=== PATIENT | male | born 1950 | race Caucasian/White ===

== ENCOUNTER 2019-11-25 06:03 | Inpatient (IN) | payer MEDICARE ==
[2019-11-25] VITALS (19 sets, daily range): BP systolic 118–169; BP diastolic 73–118
[2019-11-25] MEDS ORDERED: ASPIRIN 81 MG CHEW (CHILDREN'S ASA) ONE (06:12)
[2019-11-25] MEDS ORDERED: TICAGRELOR 90 MG TABLET (BRILINTA) PO ONE (06:12)
[2019-11-25] MEDS ORDERED: HEParin 1000 UNIT/ML (10ML VIAL) FOR BOLUS ONE ×2 (06:13→06:30)
[2019-11-25 06:28] LABS: BASOPHILS # (AUTO) 0.1 10^3/uL (0.0-0.1); BASOPHILS % (AUTO) 1 % (0-10); EOSINOPHILS # (AUTO) 0.5 10^3/uL (0.0-0.3); EOSINOPHILS % (AUTO) 6 % (0-10); HEMATOCRIT 45 % (40-54); HEMOGLOBIN 15.6 G/DL (13.3-17.7); LYMPHOCYTES # (AUTO) 2.6 X 10^3 (1.0-4.0); LYMPHOCYTES % (AUTO) 27 % (12-44); MEAN CORPUSCULAR HEMOGLOBIN 29 PG (25-34); MEAN CORPUSCULAR HGB CONC 35 G/DL (32-36); MEAN CORPUSCULAR VOLUME 83 FL (80-99); MEAN PLATELET VOLUME 10.8 FL (7.4-10.4); MONOCYTES # (AUTO) 0.9 X 10^3 (0.0-1.0); MONOCYTES % (AUTO) 9 % (0-12); NEUTROPHILS # (AUTO) 5.4 X 10^3 (1.8-7.8); NEUTROPHILS % (AUTO) 58 % (42-75); PLATELET COUNT 87 10^3/uL (130-400); RED CELL DISTRIBUTION WIDTH 13.3 % (10.0-14.5); WHITE BLOOD COUNT 9.4 10^3/uL (4.3-11.0)
[2019-11-25] MEDS ORDERED: LIDOCAINE 1% INJ 20 ML 20 ML VIAL ONE (06:30)
[2019-11-25] MEDS ORDERED: fentaNYL INJECTION 100 MCG/2 ML AMP ONE (06:30)
[2019-11-25] MEDS ORDERED: MIDAZOLAM 5 MG/5 ML (VERSED) VIAL ONE (06:30)
[2019-11-25] MEDS ORDERED: NS IV 1000 ML 1,000 ML ONE ×2 (06:30→08:43)
[2019-11-25] MEDS ORDERED: HEParin (CATH LAB) 2,000 ML IV ONE (06:31)
[2019-11-25] MEDS ORDERED: NITRO DRIP 25000 MCG/D5W 250 ML IV ONE (06:31)
--- NOTE | 2019-11-25 06:37 | Diagnostic Imaging Report ---
Indication: Chest pain Portable chest 6:36 AM Heart size and pulmonary vascularity are normal. Lungs are clear. There are no effusions or pneumothoraces. IMPRESSION: No acute abnormalities in the chest Dictated by: Dictated on workstation # [id number]
[2019-11-25] MEDS ORDERED: EPTIFIBATIDE BOLUS 20 ML IV ONE (07:43)
--- NOTE | 2019-11-25 08:55 | History & Physicial-Cardiolgy ---
HPI-Cardiology Cardiology Consultation: Date of Consultation 11/25/19 Date of Admission Attending Physician Kobe Leo MD Admitting Physician Consulting Physician Milla COX MD HPI: Time Seen by a Provider: 07:15 Chief Complaint: chest pain 69-year-old gentleman with a history of moderate chest pain since 2 a.m. in the morning. He presented to the ER just after 6 o'clock this morning. substernal. No radiation. Initial intensity was 1/10. exacerbating or relieving factors. improved with nitroglycerin. No shortness of breath. Patient denies active smoking. He has history of hypertension but denies diabetes. Allergic to lisinopril. Family history is negative. Review of Systems-Cardiology Review of Systems Constitutional: As described under HPI; No As described under HPI, No no symptoms reported, No chills, No fever, No lightheadedness Eyes: No As described under HPI, No no symptoms reported, No blindness, No blurred vision, No contact lenses, No drainage, No decreased acuity, No foreign body sensation, No pain, No vision change Ears/Nose/Throat: No As described under HPI, No no symptoms reported, No c hronic hearing loss, No ear discharge, No ear pain, No nasal drainage, No ulcerations Respiratory: No no symptoms reported; As described under HPI; No As described under HPI, No cough, No orthopnea, No shortness of breath, No SOB with excertion Cardiovascular: No no symptoms reported; As described under HPI; No As described under HPI; chest pain; No edema, No irregular heart rate, No lightheadedness, No palpitations Gastrointestinal: No no symptoms reported, No As described under HPI, No abdomen distended, No abdominal pain, No blood streaked bowels, No constipation, No diarrhea, No nausea, No vomiting, No stool coloration changes Genitourinary: No As described under HPI, No burning, No dysuria, No discharge, No frequency, No flank pain, No hematuria, No urgency Skin: No rash, No skin related problems, No ulcerations Psychiatric/Neurological: No anxiety, No depression, No seizure, No focal weakness, No syncope Hematologic: No bleeding abnormalities [id number] Hx Past Medical History PMH As described under Assessment. Allergies and Home Medications Patient Home Medication List Home Medication List Reviewed: Yes Physical Exam-Cardiology Physical Exam Vital Signs/I&O Capillary Refill : Constitutional: appears stated age, AAO x 3; No apparent distress; well- developed, well-nourished HEENT: PERRL; No discharge; hearing is well preserved, oral hygience is good; No ulceration, No xanthelasmas are seen Neck: No carotid bruit; carotid pulses are 2 + bilaterally Respiratory: chest is bilaterally symmetric, lungs clear to auscultation Cardiovascular: regular rate-rhythm, S1 and S2 Gastrointestinal: soft, audible bowel sounds; No spleenomegaly Rectal: deferred Extremities: normal range of motion, non-tender, normal inspection; No clubbing, No cyanosis; no lower extremity edema bilateral; No significant edema Neurologic/Psychiatric: no motor/sensory deficits, alert, normal mood/affect, oriented x 3, power is 5/5 both on sides Skin: No rash, No ulcerations Data Review Labs Laboratory Tests 11/25/19 06:10: White Blood Count 9.4, Red Blood Count 5.45, Hemoglobin 15.6, Hematocrit 45, Mean Corpuscular Volume 83, Mean Corpuscular Hemoglobin 29, Mean Corpuscular Hemoglobin Concent 35, Red Cell Distribution Width 13.3, Platelet Count 87L, Mean Platelet Volume 10.8H, Neutrophils (%) (Auto) 58, Lymphocytes (%) (Auto) 27 , Monocytes (%) (Auto) 9, Eosinophils (%) (Auto) 6, Basophils (%) (Auto) 1, Neutrophils # (Auto) 5.4, Lymphocytes # (Auto) 2.6, Monocytes # (Auto) 0.9, Eosinophils # (Auto) 0.5H, Basophils # (Auto) 0.1, Prothrombin Time 13.0, INR Comment 1.0, Activated Partial Thromboplast Time 30 ECG Impression ECG Initial ECG Rhythm: Normal Sinus Comment ST depression and T-wave inversions noted in leads V2 and V3. 0.[address] depression. No reciprocal changes. A/P-Cardiology Assessment/Admission Diagnosis high risk non-STEMI; refractory to medical therapy. Hypertension Admission Status: Inpatient Order (span 2 midnights) Reason for Inpatient Admission: high-risk non-STEMI Plan this patient is a high-risk non-STEMI with refractory to medical therapy. Milla COX MD Nov 25, 2019 08:55
--- NOTE | 2019-11-25 08:58 | Coronary Angiography & PCI ---
Coronary Angiography & PCI DATE OF PROCEDURE: 11/25/19 INDICATION: PREOPERATIVE DIAGNOSIS: POSTOPERATIVE DIAGNOSIS: HISTORY: Therefore, the patient was scheduled for coronary angiography. PROCEDURES PERFORMED: 1.Coronary angiography. 2.Left heart catheterization. 3.PCI to the COMPLICATIONS: None. SPECIMENS: None. ESTIMATED BLOOD LOSS: 10 mL ANESTHESIA: Conscious sedation ANTICOAGULATION: IV heparin CONTRAST: FLUOROSCOPY: FLOUROSCOPY DOSE: PROCEDURE DETAILS: The patient is a 69 male and was brought to the company laborer after informed consent was taken. All the risks and complications were explained in detail; this included the risk of bleeding, vascular damage, stroke, [place] and even . The patient was draped and prepped in the usual sterile fashion. Access was gained in the right radial artery with a 6 [place] sheath. Coronary angiography and left heart catheterization was performed with the [place] catheter. FINDINGS: 1.Left main: 2.LAD: 3.Left circumflex artery: 4.RCA: 5.Left heart catheterization: RECOMMENDATIONS: INTERVENTION DETAILS: CONCLUSIONS: 1. Octavio Sawyer MD, FACP, FACC, [facility] Interventional Cardiology Milla SAWYER MD Nov 25, 2019 08:58
[2019-11-25] MEDS ORDERED: PATIENT MAY USE OWN MEDS, ALL PO SCH (09:00)
[2019-11-25] MEDS ORDERED: diphenhydrAMINE 50 MG/ML INJ (BENADRYL) ONE (09:40)
[2019-11-25 10:20] LABS: CARBON DIOXIDE 24 MMOL/L (21-32); CHLORIDE 106 MMOL/L (98-107); POTASSIUM 3.1 MMOL/L (3.6-5.0); SODIUM 142 MMOL/L (135-145)
[2019-11-25 10:21] LABS: ALANINE AMINOTRANSFERASE 19 U/L (0-55); ALBUMIN 4.4 GM/DL (3.2-4.5); ALKALINE PHOSPHATASE 80 U/L (40-136); BILIRUBIN,TOTAL 0.6 MG/DL (0.1-1.0); BUN/CREATININE RATIO 17; CALCIUM 9.2 MG/DL (8.5-10.1); CREATININE SERUM 0.98 MG/DL (0.60-1.30); GFR ESTIMATED > 60; GLUCOSE 172 MG/DL (70-105); TOTAL PROTEIN 7.7 GM/DL (6.4-8.2)
[2019-11-25] MEDS ORDERED: AMIODARONE 200 MG (CORDARONE) TAB PO SCH (11:00)
[2019-11-25] MEDS ORDERED: dilTIAZem120 MG (CARDIZEM CD) CAP PO SCH (11:00)
[2019-11-25] MEDS: TICAGRELOR 90 MG TABLET (BRILINTA) PO SCH ×2 (11:03→20:41)
[2019-11-25] MEDS: ASPIRIN E.C. 81 MG (ECOTRIN) TAB PO SCH (11:03)
--- NOTE | 2019-11-25 11:03 | NUR ---
MEDICATIONS WERE GIVEN IN ER
[2019-11-25] MEDS: NS IV 1000 ML 1,000 ML IV SCH ×3 (11:04→20:42)
[2019-11-25] MEDS ORDERED: meTOprolol TARTRATE 25 MG (LOPRESSOR) TABLET ONE (11:05)
[2019-11-25] MEDS: meTOprolol TARTRATE 25 MG (LOPRESSOR) TABLET PO SCH ×2 (11:40→20:42)
[2019-11-25] MEDS ORDERED: DIPH25CA79 PO (12:36)
[2019-11-25] MEDS ORDERED: OMEP20CA18 PO (12:36)
[2019-11-25] MEDS ORDERED: AMLO10TA7 PO (12:36)
[2019-11-25] MEDS ORDERED: LOSA100T57 PO (12:36)
[2019-11-25] MEDS ORDERED: MULT-1136 PO (12:36)
[2019-11-25] MEDS ORDERED: ATEN25TA PO (12:36)
--- NOTE | 2019-11-25 12:37 | NUR ---
SPOKE WITH THE PT (HIS HAD A MED LIST THAT I PUT ON THE CHART) AND WENT THRU THE EXT MED HISTORY TO COMPLETE THE MED REC ALL MEDS SHOW ON THE EXT MED HISTORY. [facility]- PT SAYS HE IS NO USING SINCE THE SURGERY WAS CANCELLED OTC MEDS: JULIANNA GOLD[facility]
--- NOTE | 2019-11-25 14:35 | NUR ---
No buddhism preference but former Tenriism. Psych Arnp provided prayer and blessing.
[2019-11-26] VITALS (18 sets, daily range): BP systolic 118–147; BP diastolic 75–97
[2019-11-26 03:19] LABS: HEMOGLOBIN 11.7 G/DL (13.3-17.7); MEAN PLATELET VOLUME 10.6 FL (7.4-10.4); RED CELL DISTRIBUTION WIDTH 13.3 % (10.0-14.5); WHITE BLOOD COUNT 11.7 10^3/uL (4.3-11.0)
[2019-11-26 03:28] LABS: BUN/CREATININE RATIO 11; CALCIUM 7.9 MG/DL (8.5-10.1); CARBON DIOXIDE 24 MMOL/L (21-32); CHLORIDE 106 MMOL/L (98-107); CHOLESTEROL 138 MG/DL (< 200); CREATININE SERUM 0.75 MG/DL (0.60-1.30); GFR ESTIMATED > 60; GLUCOSE 114 MG/DL (70-105); HDL CHOLESTEROL 29 MG/DL (40-60); POTASSIUM 3.5 MMOL/L (3.6-5.0); SODIUM 138 MMOL/L (135-145); TRIGLYCERIDES 172 MG/DL (<150); VLDL CHOLESTEROL 34 MG/DL (5-40)
[2019-11-26] MEDS: TICAGRELOR 90 MG TABLET (BRILINTA) PO SCH ×2 (08:04→21:07)
[2019-11-26] MEDS: meTOprolol TARTRATE 25 MG (LOPRESSOR) TABLET PO SCH (08:04)
[2019-11-26] MEDS: ASPIRIN E.C. 81 MG (ECOTRIN) TAB PO SCH (08:04)
[2019-11-26] MEDS: NS IV 1000 ML 1,000 ML IV SCH (15:47)
[2019-11-26] MEDS ORDERED: meTOproloL SUCCINATE 50 MG (TOPROL XL) TAB PO SCH (17:00)
[2019-11-26] MEDS ORDERED: ACETAMINOPHEN 325 MG TABLET PO PRN (17:00)
[2019-11-26] MEDS ORDERED: KCL 20 MEQ TAB (K-DUR) PO NR (17:00)
--- NOTE | 2019-11-26 17:07 | Progress Note - Cardiology ---
Cardiology SOAP Progress Note Subjective: No cp or palp or syncope or shortness of breath No focal weakness Mild R groin discomfort when walking and mild to mod R groin bruising No leg discomfort or discoloration No n/v/d Objective: I&O/Vital Signs 11/26/19 11/26/19 11/26/19 11/26/19 06:00 07:00 07:00 07:00 Temp 37.2 Pulse 67 75 71 Resp 34 B/P (MAP) 134/83 (100) Pulse Ox 94 O2 Delivery Room Air Room Air 11/26/19 11/26/19 11/26/19 11/26/19 08:00 08:00 09:00 10:00 Pulse 80 77 65 Resp 25 13 35 B/P (MAP) 133/82 (99) 129/86 (100) 126/90 (102) Pulse Ox 95 99 95 96 O2 Delivery Room Air Room Air Room Air Room Air 11/26/19 11/26/19 11/26/19 11/26/19 11:00 12:00 12:00 12:00 Temp 37.0 Pulse 63 63 Resp 26 37 B/P (MAP) 139/81 (100) 143/95 (111) Pulse Ox 95 100 93 O2 Delivery Room Air Room Air Room Air 11/26/19 11/26/19 11/26/19 11/26/19 13:00 13:25 14:00 15:00 Pulse 75 80 71 76 Resp 19 46 23 B/P (MAP) 147/92 (110) 135/97 (110) 141/89 (106) Pulse Ox 94 95 94 O2 Delivery Room Air Room Air Room Air 11/26/19 11/26/19 11/26/19 16:00 16:00 16:57 Temp 37.2 Pulse 78 76 Resp 20 23 B/P (MAP) 140/90 (107) 141/89 (106) Pulse Ox 95 95 94 O2 Delivery Room Air Room Air Room Air 11/26/19 00:00 Intake Total 950 ml Output Total 2225 ml Balance -1275 ml Condition: DP/PT pulses palpable Device Insertion Site: without hematoma Bruising: mild bruising, moderated bruising Constitutional: appears stated age, AAO x 3; No apparent distress; well- developed, well-nourished Respiratory: chest is bilaterally symmetric, lungs clear to auscultation Cardiovascular: regular rate-rhythm, S1 and S2, systolic murmur (soft HELENE at card basee) Gastrointestional: soft; No guarding, No rebound; audible bowel sounds Extremities: No clubbing, No cyanosis, No significant edema Neurologic/Psychiatric: oriented x 3, other (moves all limbs equally) Skin: No rash, No ulcerations, No rash on exposed areas, No ulcerations on exposed areas Results/Procedures: Labs Laboratory Tests 11/26/19 02:50: White Blood Count 11.7H, Red Blood Count 4.05L, Hemoglobin 11.7#L, Hematocrit 34L, Mean Corpuscular Volume 84, Mean Corpuscular Hemoglobin 29, Mean Corpuscular Hemoglobin Concent 34, Red Cell Distribution Width 13.3, Platelet Count 96L, Mean Platelet Volume 10.6H, Sodium Level 138, Potassium Level 3.5L, Chloride Level 106, Carbon Dioxide Level 24, Anion Gap 8, Blood Urea Nitrogen 8, Creatinine 0.75, Estimat Glomerular Filtration Rate > 60, BUN/Creatinine Ratio 11, Glucose Level 114H, Calcium Level 7.9L, Troponin I 11.934*H, Triglycerides Level 172H, Cholesterol Level 138, LDL Cholesterol Direct 98, VLDL Cholesterol 34, HDL Cholesterol 29L Laboratory Tests 11/25/19 06:10 11/26/19 02:50 A/P: Assessment: NSTEMI on 11/25/19 Multivessel CAD. Card cath on 11/25/19: LMCA ok; RCA dominant with mild diffuse disease; LAD 95% mid, treated with DONTRELL; LCX 99% mid, treated with DONTRELL; OM1 80% prox, treated with DONTRELL Echo of 11/25/19: Mild conc LVH, LVEF 55-65%, grade 1 diastolic dysfunction, PASP 20 mm Hg to 25 mm Hg. Hypertension Plan: I reviewed his records, interviewed and examined him, discussed his case with Dr Sawyer, and answered Mr and Mrs Fischer's questions DAPT BB ARB Statin Replenish K Increase ambulation Repeat labs in YULIET Vasquez MD FACP [facility] CCDS Nov 26, 2019 17:07
[2019-11-27] VITALS: BP 131/80
[2019-11-27] MEDS: NS IV 1000 ML 1,000 ML IV SCH (01:48)
[2019-11-27 03:38] LABS: BASOPHILS % (AUTO) 1 % (0-10); EOSINOPHILS # (AUTO) 0.4 10^3/uL (0.0-0.3); EOSINOPHILS % (AUTO) 5 % (0-10); HEMATOCRIT 33 % (40-54); HEMOGLOBIN 11.3 G/DL (13.3-17.7); LYMPHOCYTES # (AUTO) 1.5 X 10^3 (1.0-4.0); LYMPHOCYTES % (AUTO) 18 % (12-44); MEAN CORPUSCULAR HEMOGLOBIN 29 PG (25-34); MEAN CORPUSCULAR HGB CONC 34 G/DL (32-36); MEAN CORPUSCULAR VOLUME 84 FL (80-99); MEAN PLATELET VOLUME 10.7 FL (7.4-10.4); MONOCYTES % (AUTO) 11 % (0-12); NEUTROPHILS # (AUTO) 5.8 X 10^3 (1.8-7.8); NEUTROPHILS % (AUTO) 66 % (42-75); PLATELET COUNT 94 10^3/uL (130-400); RED CELL DISTRIBUTION WIDTH 12.9 % (10.0-14.5); WHITE BLOOD COUNT 8.7 10^3/uL (4.3-11.0)
[2019-11-27 04:00] VITALS: BP 135/76
[2019-11-27 04:13] LABS: BUN/CREATININE RATIO 11; CALCIUM 8.3 MG/DL (8.5-10.1); CARBON DIOXIDE 23 MMOL/L (21-32); CHLORIDE 109 MMOL/L (98-107); CREATININE SERUM 0.74 MG/DL (0.60-1.30); GFR ESTIMATED > 60; GLUCOSE 100 MG/DL (70-105); MAGNESIUM 1.4 MG/DL (1.6-2.4); POTASSIUM 3.3 MMOL/L (3.6-5.0); SODIUM 140 MMOL/L (135-145)
[2019-11-27 08:00] VITALS: BP 155/82
[2019-11-27] MEDS: ASPIRIN E.C. 81 MG (ECOTRIN) TAB PO SCH (08:45)
[2019-11-27] MEDS: TICAGRELOR 90 MG TABLET (BRILINTA) PO SCH ×2 (08:45→21:01)
[2019-11-27] MEDS ORDERED: LOSARTAN 50 MG (COZAAR) TAB PO SCH (09:00)
[2019-11-27] MEDS ORDERED: meTOprolol SUCCINATE 100 MG (TOPROL XL) TAB PO SCH (09:00)
--- NOTE | 2019-11-27 10:05 | NUR ---
pt called out and stated that he was having tingling in his feet. Assessed Pt, pt vitals wnl. checked perfusion and sensation to feet. both good at this time. relayed to dr hastings
[2019-11-27] MEDS ORDERED: LOSARTAN 50 MG (COZAAR) TAB PO ONE (10:45)
[2019-11-27] MEDS ORDERED: KCL 20 MEQ TAB (K-DUR) PO ONE (10:45)
--- NOTE | 2019-11-27 11:40 | Progress Note - Cardiology ---
Cardiology SOAP Progress Note Subjective: States he feels unwell Has had bilateral leg tingling Has had nausea w/o vomiting or diarrhea Has had a feeling of dizziness and being hot No cp or palp or syncope or shortness of breath No focal weakness Objective: I&O/Vital Signs 11/27/19 11/27/19 11/27/19 11/27/19 00:00 01:00 04:00 07:00 Temp 37.4 37.1 Pulse 66 65 68 71 Resp 16 16 B/P (MAP) 131/80 (97) 135/76 (95) Pulse Ox 95 96 O2 Delivery Room Air Room Air 11/27/19 08:00 Temp 36.7 Pulse 67 Resp 18 B/P (MAP) 155/82 (106) Pulse Ox 94 O2 Delivery Room Air 11/27/19 00:00 Intake Total 1400 ml Output Total 1100 ml Balance 300 ml Condition: DP/PT pulses palpable Device Insertion Site: without hematoma Bruising: mild bruising, moderated bruising Constitutional: appears stated age, AAO x 3; No apparent distress; well- developed, well-nourished Respiratory: chest is bilaterally symmetric, lungs clear to auscultation Cardiovascular: regular rate-rhythm, S1 and S2, systolic murmur (soft HELENE at card basee) Gastrointestional: soft; No guarding, No rebound; audible bowel sounds Extremities: No clubbing, No cyanosis, No significant edema Neurologic/Psychiatric: oriented x 3, other (moves all limbs equally) Skin: No rash, No ulcerations, No rash on exposed areas, No ulcerations on exposed areas Results/Procedures: Labs Laboratory Tests 11/27/19 03:10: White Blood Count 8.7, Red Blood Count 3.96L, Hemoglobin 11.3L, Hematocrit 33L, Mean Corpuscular Volume 84, Mean Corpuscular Hemoglobin 29, Mean Corpuscular Hemoglobin Concent 34, Red Cell Distribution Width 12.9, Platelet Count 94L, Mean Platelet Volume 10.7H, Neutrophils (%) (Auto) 66, Lymphocytes (%) (Auto) 18, Monocytes (%) (Auto) 11, Eosinophils (%) (Auto) 5, Basophils (%) (Auto) 1, Neutrophils # (Auto) 5.8, Lymphocytes # (Auto) 1.5, Monocytes # (Auto) 1.0, Eosinophils # (Auto) 0.4H, Basophils # (Auto) 0.0, Sodium Level 140, Potassium Level 3.3L, Chloride Level 109H, Carbon Dioxide Level 23, Anion Gap 8, Blood Urea Nitrogen 8, Creatinine 0.74, Estimat Glomerular Filtration Rate > 60, BUN/Creatinine Ratio 11, Glucose Level 100, Calcium Level 8.3L, Magnesium Level 1.4L, Thyroid Stimulating Hormone (TSH) 2.10 Laboratory Tests 11/26/19 02:50 11/27/19 03:10 A/P: Assessment: Multiple nonspecific symptoms of unclear etiology (see above) NSTEMI on 11/25/19 Multivessel CAD. Card cath on 11/25/19: LMCA ok; RCA dominant with mild diffuse disease; LAD 95% mid, treated with DONTRELL; LCX 99% mid, treated with DONTRELL; OM1 80% prox, treated with DONTRELL Echo of 11/25/19: Mild conc LVH, LVEF 55-65%, grade 1 diastolic dysfunction, PASP 20 mm Hg to 25 mm Hg Hypertension Mild anemia, probably due to periop blood loss on 11/25/19 Mild thrombocytopenia that patient reports to be chronic, stable Plan: Medical/Hospitalist consult. I discussed his case with Dr Shrot and requested DAPT, BB, ARB, Statin Replenish K Increase ambulation Repeat labs in am Hold discharge today YULIET ULLOA MD FACP [facility] Nov 27, 2019 11:40
[2019-11-27 11:45] VITALS: BP 170/94
[2019-11-27] MEDS ORDERED: PANTOPRAZOLE 40 MG (PROTONIX) TAB PO ONE ×2 (13:35→13:45)
--- NOTE | 2019-11-27 13:56 | Consultation - Hospitalist ---
HPI History of Present Illness: HPI/Chief Complaint Alo Fischer is a 69 year old man who presented with chest pain and was admitted with NSTEMI. He underwent PCI with multiple stents placed. This morning he was set to discharge, but shortly after receiving his morning medications he developed a tingling sensation in his feet. He reports that he was pacing around the room. He then developed nausea. He reports feeling dizzy and hot. He denies any dyspnea. He denies fevers and chills. He denies cough. He denies chest pain. He denies vomiting. He denies abdominal pain. He denies diarrhea. He says "maybe it was a panic attack". His says that he never complains about anything so if he mentioned it, then it must be serious. He has taken Atenolol up until recently and tolerated it well. He has not taken Metoprolol before. He has taken Aspirin without issue. He has never taken Brilinta until now. He has been on Losartan as an outpatient without issue. Source: patient Exam Limitations: no limitations Date Seen 11/27/19 Attending Physician Kobe Leo MD PCP Referring Physician Date of Admission Nov 25, 2019 at 09:03 Home Medications & Allergies Home Medications Reviewed patient Home Medication Reconciliation performed by pharmacy medication reconciliations prosthetics technician and/or nursing. Patients Allergies have been reviewed. Allergies Allergies Coded Allergies lisinopril (Verified Allergy, Severe, 11/25/19) FACIAL SWELLING Past [id number]-Rlzlmg Hx Past Med/Social Hx: Reviewed Nursing Past Med/Soc Hx Immunizations Up To Date Date of Pneumonia Vaccine: Nov 11, 2014 Family History Hypertension 19 MOTHER G8 BROTHER Review of Systems Constitutional: dizziness, malaise EENTM: no symptoms reported Respiratory: no symptoms reported Cardiovascular: no symptoms reported Gastrointestinal: nausea Genitourinary: no symptoms reported Musculoskeletal: no symptoms reported Skin: no symptoms reported Psychiatric/Neurological: Anxiety, Tingling Physical Exam Physical Exam Vital Signs Vital Signs - First Documented 11/25/19 11/25/19 11/25/19 11/25/19 09:30 09:35 09:43 09:45 Pulse 74 Resp 12 B/P (MAP) 167/98 (121) Pulse Ox 99 O2 Delivery Nasal Cannula O2 Flow Rate 2.00 Capillary Refill : Less Than 3 Seconds Height, Weight, BMI Height: '" Weight: lbs. oz. kg; BMI Method: General Appearance: No Apparent Distress, WD/WN HEENT: PERRL/EOMI, Pharynx Normal Neck: Normal Inspection, Supple Respiratory: Lungs Clear, Normal Breath Sounds, No Respiratory Distress Cardiovascular: Regular Rate, Rhythm, No Edema, No Murmur Gastrointestinal: Normal Bowel Sounds, Non Tender, Soft Extremity: Normal Inspection, Non Tender, Pedal Edema Neurologic/Psychiatric: Alert, Oriented x3, No Motor/Sensory Deficits, Normal Mood/Affect Skin: Normal Color, Warm/Dry Results Results/Procedures Labs Laboratory Tests 11/26/19 02:50 11/27/19 03:10 Patient resulted labs reviewed. Imaging: Reviewed Imaging Report Assessment/Plan Assessment and Plan Assess & Plan/Chief Complaint NSTEMI -Cardiology primary -Continue ASA, Brilinta, Metoprolol, Losartan, Lipitor Possible panic attack Possible adverse medication effect -Split medications to assess for adverse effect -Take Brilinta tonight at 8 pm -Take Lipitor tonight at 9 pm -Take Metoprolol tomorrow morning at 7 am -Take ASA and Brilinta tomorrow morning at 9 am -Begin Xanax 0.25 mg three times daily as needed for panic attack Hypomagnesemia Hypokalemia -Continue to monitor and replace as needed GERD -Continue PPI Diagnosis/Problems Diagnosis/Problems (1) NSTEMI (non-ST elevation myocardial infarction) Status: Acute (2) S/P coronary artery stent placement Status: Acute (3) Medication adverse effect Status: Acute (4) Panic attack as reaction to stress Status: Acute ELIE BIRMINGHAM MD Nov 27, 2019 13:56
[2019-11-27] MEDS: MAGNESIUM 1 GM/100 ML IVPB 100 ML IV SCH ×3 (15:03→16:17)
[2019-11-27 16:00] VITALS: BP 153/85
[2019-11-27] MEDS ORDERED: ALPRAZolam 0.25 MG (XANAX) TAB PO PRN (17:00)
[2019-11-27 20:00] VITALS: BP 162/91
[2019-11-27] MEDS: PANTOPRAZOLE 40 MG (PROTONIX) TAB PO SCH (21:01)
[2019-11-28 00:26] VITALS: BP 136/83
[2019-11-28 03:50] LABS: BUN/CREATININE RATIO 12; CALCIUM 8.2 MG/DL (8.5-10.1); CARBON DIOXIDE 23 MMOL/L (21-32); CHLORIDE 108 MMOL/L (98-107); CREATININE SERUM 0.73 MG/DL (0.60-1.30); GFR ESTIMATED > 60; GLUCOSE 100 MG/DL (70-105); MAGNESIUM 1.8 MG/DL (1.6-2.4); POTASSIUM 3.6 MMOL/L (3.6-5.0); SODIUM 140 MMOL/L (135-145)
[2019-11-28 04:00] VITALS: BP 166/89
[2019-11-28] MEDS ORDERED: meTOprolol SUCCINATE 100 MG (TOPROL XL) TAB PO SCH (07:00)
[2019-11-28] MEDS: PANTOPRAZOLE 40 MG (PROTONIX) TAB PO SCH (08:07)
[2019-11-28] MEDS: ASPIRIN E.C. 81 MG (ECOTRIN) TAB PO SCH (08:07)
[2019-11-28] MEDS: TICAGRELOR 90 MG TABLET (BRILINTA) PO SCH (08:07)
[2019-11-28 08:08] VITALS: BP 152/83
[2019-11-28] MEDS ORDERED: LOSARTAN 100 MG (COZAAR) TABLET PO SCH (09:00)
--- NOTE | 2019-11-28 11:10 | NUR ---
THIS NURSE NOTIFIED DR ULLOA PT IS REFUSING TO TAKE METOPROLOL. DR ULLOA SAID PT CAN RESUME HOME ATENOLOL INSTEAD. THIS NURSE NOTIFIED DR ULLOA PT HAS NOT C/O ANY NAUSEA, SOA, OR TINGLING IN HIS LEGS WITH ANY OF THE OTHER MORNING MEDICATIONS. PT BP WAS 152/[address] ULLOA WILL COME SEE PT LATER TODAY. THIS NURSE UPDATED DR BIRMINGHAM AND PT ON DR ULLOA'S PLAN.
[2019-11-28 11:21] VITALS: BP 158/93
--- NOTE | 2019-11-28 12:02 | Progress Note - Hospitalist ---
Subjective HPI/CC On Admission Date Seen by Provider: Nov 28, 2019 Time Seen by Provider: 09:50 Alo Fischer is a 69 year old man who presented with chest pain and was admitted with NSTEMI. He underwent PCI with multiple stents placed. This morning he was set to discharge, but shortly after receiving his morning medications he developed a tingling sensation in his feet. He reports that he was pacing around the room. He then developed nausea. He reports feeling dizzy and hot. He denies any dyspnea. He denies fevers and chills. He denies cough. He denies chest pain. He denies vomiting. He denies abdominal pain. He denies diarrhea. He says "maybe it was a panic attack". His says that he never complains about anything so if he mentioned it, then it must be serious. He has taken Atenolol up until recently and tolerated it well. He has not taken Metoprolol before. He has taken Aspirin without issue. He has never taken Brilinta until now. He has been on Losartan as an outpatient without issue. Subjective/Events-last exam he has had no further episodes like yesterday. He did not take his metoprolol this morning. He did not have any issues with his meds last night or this morning. He denies any fevers or chills. He denies any chest pain or shortness of breath. He denies any abdominal pain. He denies any nausea and vomiting. He denies any numbness and tingling. Objective Exam Vital Signs Vital Signs Date Time Temp Pulse Resp B/P (MAP) Pulse Ox O2 Delivery O2 Flow Rate FiO2 11/28/19 11:21 36.6 60 18 158/93 (114) 95 Room Air 11/25/19 13:39 2.00 Capillary Refill : Less Than 3 Seconds General Appearance: No Apparent Distress, WD/WN Respiratory: Lungs Clear, Normal Breath Sounds, No Respiratory Distress Cardiovascular: Regular Rate, Rhythm, No Edema, No Murmur Gastrointestinal: Normal Bowel Sounds, Non Tender, Soft Extremity: Normal Inspection, Non Tender, No Pedal Edema Neurologic/Psychiatric: Alert, Oriented x3, No Motor/Sensory Deficits, Normal Mood/Affect Skin: Normal Color, Warm/Dry Results/Procedures Lab Laboratory Tests 11/28/19 03:24 Patient resulted labs reviewed. Imaging: Reviewed Imaging Report Assessment/Plan Assessment and Plan Assess & Plan/Chief Complaint NSTEMI CAD Possible panic attack Possible adverse medication effect -Cardiology primary -Continue ASA, Brilinta, Losartan, Lipitor -discontinue metoprolol, resume atenolol GERD -Continue PPI Hypomagnesemia, resolved Hypokalemia, resolved Diagnosis/Problems Diagnosis/Problems (1) NSTEMI (non-ST elevation myocardial infarction) Status: Acute (2) S/P coronary artery stent placement Status: Acute (3) Medication adverse effect Status: Acute (4) Panic attack as reaction to stress Status: Acute ELIE BIRMINGHAM MD Nov 28, 2019 12:02
[2019-11-28] MEDS ORDERED: TICA90TA PO (12:55)
[2019-11-28] MEDS ORDERED: ASPI-999 PO (12:55)
[2019-11-28] MEDS ORDERED: ATOR40TA PO (12:55)
--- NOTE | 2019-11-28 12:55 | Discharge Inst-Cardiology ---
Discharge Inst-Cardiac Discharge Medications New Medications: Aspirin (Aspirin) 81 Mg Tab.chew 81 MG PO DAILY, #30 TAB 5 Refills Atorvastatin Calcium (Lipitor) 40 Mg Tablet 40 MG PO HS for 30 Days, #30 TAB 5 Refills Ticagrelor (Brilinta) 90 Mg Tablet 90 MG PO BID for 30 Days, #60 TAB 5 Refills Continued Medications: Amlodipine Besylate (Amlodipine Besylate) 10 Mg Tablet 10 MG PO DAILY, TAB Atenolol (Atenolol) 25 Mg Tablet 25 MG PO DAILY, TAB Diphenhydramine HCl (Benadryl) 25 Mg Capsule 25-50 MG PO Q6H PRN for ALLERGY SYMPTOMS, CAP Losartan Potassium (Losartan Potassium) 100 Mg Tablet 100 MG PO DAILY, TAB Multivitamin (Multivitamin) 1 Each Tablet 1 EACH PO DAILY, TAB Omeprazole (Omeprazole) 20 Mg Capsule.dr 20 MG PO BID, YULIET LONG MD [facility] Nov 28, 2019 12:55
--- NOTE | 2019-11-28 12:56 | Discharge Inst-Post CATH ---
Discharge Inst-CATH/EP Post Cardiac Cath/EP D/C Inst Follow Up/Plan F/u with Dr Sawyer next week ACTIVITY * Go Home directly and rest. * Limit activity of the leg (or wrist if it was used) for 7 days including aerobics, swimming, jogging, bicycling, etc. * Restrict stair-climbing for 7 days if possible, if not, climb up with your no n-cath leg, then bring together on the same step. * Avoid lifting, pushing, pulling or excessive movement of the affected ext remity for 7 days. * Customary sexual activity may be resumed after 2 days-use caution not to use a position that strains or causes pain to the affected extremity. * No driving for 24 hours. * NO SMOKING. * Avoid straining for bowel movements for 7 days. * Gentle walking on level ground is allowed. * Returning to work will depend on the type of procedure and the results. Your doctor will discuss this with you. CALL YOUR DOCTOR FOR ANY OF THE FOLLOWING: *If bleeding from the puncture site occurs- Apply gentle pressure to site with clean cloth and call your doctor or EMS. * If a knot or lump forms under the skin, increases in size, or causes pain. * If bruising appears to be worsening or moving further down your leg instead of disappearing. * Temperature above 101 F. CARE OF YOUR GROIN INCISION; * Bruising or purple discoloration of the skin near the puncture site is common. * You may shower only, no bathtub bathing for 5 days. Be careful to avoid slipping as your leg may feel stiff. * If a closure device was used on your femoral artery, please see the attached guide regarding care of the device and your leg. * Leave dressing on FOR 24 hours. CARE OF YOUR WRIST INCISION; * Bruising or purple discoloration of the skin near the puncture site is common. * You may shower. * DO NOT submerge wrist. * Leave dressing on FOR 24 hours. YULIET ULLOA MD FACP [facility] Nov 28, 2019 12:56
--- NOTE | 2019-11-28 13:03 | Progress Note - Cardiology ---
Cardiology SOAP Progress Note Subjective: Feels well today No tingling or weakness No cp or shortness of breath or palp or syncope No leg discomfort No n/v/d Wishes to go home Objective: I&O/Vital Signs 11/28/19 11/28/19 11/28/19 11/28/19 01:00 04:00 07:00 08:08 Temp 36.9 36.3 Pulse 57 61 62 64 Resp 18 18 B/P (MAP) 166/89 (114) 152/83 (106) Pulse Ox 96 95 O2 Delivery Room Air Room Air 11/28/19 11/28/19 09:00 11:21 Temp 36.6 Pulse 60 Resp 18 B/P (MAP) 158/93 (114) Pulse Ox 95 O2 Delivery Room Air Room Air 11/28/19 00:00 Intake Total 2160 ml Output Total 1700 ml Balance 460 ml Condition: DP/PT pulses palpable Device Insertion Site: without hematoma Bruising: moderated bruising Constitutional: appears stated age, AAO x 3; No apparent distress; well-developed, well-nourished Respiratory: chest is bilaterally symmetric, lungs clear to auscultation Cardiovascular: regular rate-rhythm, S1 and S2, systolic murmur (soft HELENE at card basee) Gastrointestional: soft; No guarding, No rebound; audible bowel sounds Extremities: No clubbing, No cyanosis, No significant edema Neurologic/Psychiatric: oriented x 3, other (moves all limbs equally) Skin: No rash, No ulcerations, No rash on exposed areas, No ulcerations on exposed areas Results/Procedures: Labs Laboratory Tests 11/28/19 03:24: Sodium Level 140, Potassium Level 3.6, Chloride Level 108H, Carbon Dioxide Level 23, Anion Gap 9, Blood Urea Nitrogen 9, Creatinine 0.73, Estimat Glomerular Filtration Rate > 60, BUN/Creatinine Ratio 12, Glucose Level 100, Calcium Level 8.2L, Magnesium Level 1.8 Laboratory Tests 11/27/19 03:10 11/28/19 03:24 A/P: Assessment: Multiple nonspecific symptoms of unclear etiology post-PCI, now resolved. May have been due to change in beta-leon NSTEMI on 11/25/19 Multivessel CAD. Card cath on 11/25/19: LMCA ok; RCA dominant with mild diffuse disease; LAD 95% mid, treated with DONTRELL; LCX 99% mid, treated with DONTRELL; OM1 80% prox, treated with DONTRELL Echo of 11/25/19: Mild conc LVH, LVEF 55-65%, grade 1 diastolic dysfunction, PASP 20 mm Hg to 25 mm Hg Hypertension Mild anemia, probably due to periop blood loss on 11/25/19 Mild thrombocytopenia that patient reports to be chronic, stable. This was evaluated by the Hospitalist Service during this hospitalization who did not gi ve any new recommendations Plan: Appreciate Dr Short's help whom we consulted for patient's thrombocytopenia and multiple, nonspecific symptoms after PCI DAPT, BB, ARB, Statin K corrected We had a detailed discussion with him regarding his CV findings, current regimen (including its pros and cons, and the importance of compliance) He did not tolerate metoprolol succinate well. He is back to his previous regimen for hypertension: atenolol, amlodipine, losartan His platelet count has been stable. We are continuing ASA and Brilinta and have advised outpt f/u with his pcp and with Dr Sawyer within a week Return to ER for any recurrence of symptoms or any new symptoms YULIET ULLOA MD FACP [facility] Nov 28, 2019 13:03
--- NOTE | 2019-11-28 13:05 | Cardiology Discharge Summary ---
Diagnosis/Chief Complaint Date of Admission Nov 25, 2019 at 09:03 Date of Discharge 11/28/19 Final/Discharge Diagnosis Multiple nonspecific symptoms of unclear etiology post-PCI, now resolved. May have been due to change in beta-leon NSTEMI on 11/25/19 Multivessel CAD. Card cath on 11/25/19: LMCA ok; RCA dominant with mild diffuse disease; LAD 95% mid, treated with DONTRELL; LCX 99% mid, treated with DONTRELL; OM1 80% p gogo, treated with DONTRELL Echo of 11/25/19: Mild conc LVH, LVEF 55-65%, grade 1 diastolic dysfunction, PASP 20 mm Hg to 25 mm Hg Hypertension Mild anemia, probably due to periop blood loss on 11/25/19 Mild thrombocytopenia that patient reports to be chronic, stable. This was evaluated by the Hospitalist Service during this hospitalization who did not give any new recommendations Chief Complaint/HPI Chief Complaint/HPI Please refer to our progress note of today's date for condition at discharge Appreciate Dr Short's help whom we consulted for patient's thrombocytopenia and multiple, nonspecific symptoms after PCI Continue DAPT, BB, ARB, statin K corrected We had a detailed discussion with him regarding his CV findings, current regimen (including its pros and cons, and the importance of compliance) He did not tolerate metoprolol succinate well. He is back to his previous regimen for hypertension: atenolol, amlodipine, losartan His platelet count has been stable. We are continuing ASA and Brilinta and have advised outpt f/u with his pcp and with Dr Sawyer within a week Return to ER for any recurrence of symptoms or any new symptoms Discharge Summary Discussion & Recommendations Home Medications Reviewed patient Home Medication Reconciliation performed by pharmacy medication reconciliations occupational health technician and/or nursing. Patients Allergies have been reviewed. Discharge Home Medications: Reviewed and agree with Discharge Medication list on patient's Discharge Instruction sheet Instructions to patient/family F/u with Dr Sawyer next week YULIET ULLOA MD [facility] Nov 28, 2019 13:05
[2019-11-28 14:00] VITALS: BP 158/93
--- NOTE | 2019-11-28 14:15 | NUR ---
THIS NURSE EDUCATED PT ON DISCHARGE INSTRUCTIONS AND HOME MEDICATIONS. PT STATED UNDERSTANDING. PT TAKEN DOWN VIA WHEELCHAIR WITH BELONGINGS. TO TAKE PT HOME.
[2019-11-29] MEDS ORDERED: ATENOLOL 25 MG (TENORMIN) TAB PO SCH (09:00)
== END 2019-11-28 14:35 | disposition home or self-care (01) | DRG 247 ==
LOC: ER 06:08 → CATH 06:39 → ICU 09:03 → CSD 11-26 16:56
PROVIDERS: ADMIT Internal Medicine Interventional Cardiology; ATTEND Emergency Medicine
PROC: 027236Z Dilation of Coronary Artery, Three Arteries with Three Drug-eluting Intraluminal Devices, Percutaneous Approach (ICD-10-PCS; principal; 2019-11-25)
PROC: 4A023N7 Measurement of Cardiac Sampling and Pressure, Left Heart, Percutaneous Approach (ICD-10-PCS; 2019-11-25)
PROC: B2111ZZ Fluoroscopy of Multiple Coronary Arteries using Low Osmolar Contrast (ICD-10-PCS; 2019-11-25)
PROC: B2151ZZ Fluoroscopy of Left Heart using Low Osmolar Contrast (ICD-10-PCS; 2019-11-25)
DX: I21.4 Non-ST elevation (NSTEMI) myocardial infarction (principal); D62 Acute posthemorrhagic anemia; I25.119 Atherosclerotic heart disease of native coronary artery with unspecified angina pectoris; I10 Essential (primary) hypertension; D69.6 Thrombocytopenia, unspecified; F41.0 Panic disorder [episodic paroxysmal anxiety]; E83.42 Hypomagnesemia; E87.6 Hypokalemia; K21.9 Gastro-esophageal reflux disease without esophagitis
CPT/HCPCS: 36415; 71045; 80048; 80053; 80061; 83735; 84443; 84484; 85025; 85027; 85610; 85730; 93005; 93306; 93458; 96374

== ENCOUNTER 2019-12-01 13:54 | Emergency (ER) | payer MEDICARE ==
[~2019-12-01] VITALS: Ht 193 cm; Wt 113.0 kg
[~2019-12-01 13:54] MED LIST: AMLO10TA7 PO; ASPI-999 PO; ATEN25TA PO; ATOR40TA PO; DIPH25CA79 PO; LOSA100T57 PO; MULT-1136 PO; OMEP20CA18 PO; TICA90TA PO
[2019-12-01 14:16] LABS: BASOPHILS # (AUTO) 0.1 10^3/uL (0.0-0.1); BASOPHILS % (AUTO) 1 % (0-10); EOSINOPHILS # (AUTO) 0.4 10^3/uL (0.0-0.3); EOSINOPHILS % (AUTO) 4 % (0-10); HEMATOCRIT 37 % (40-54); HEMOGLOBIN 12.8 G/DL (13.3-17.7); LYMPHOCYTES # (AUTO) 1.3 X 10^3 (1.0-4.0); LYMPHOCYTES % (AUTO) 16 % (12-44); MEAN CORPUSCULAR HEMOGLOBIN 29 PG (25-34); MEAN CORPUSCULAR HGB CONC 35 G/DL (32-36); MEAN CORPUSCULAR VOLUME 83 FL (80-99); MEAN PLATELET VOLUME 10.1 FL (7.4-10.4); MONOCYTES # (AUTO) 0.6 X 10^3 (0.0-1.0); MONOCYTES % (AUTO) 7 % (0-12); NEUTROPHILS # (AUTO) 5.8 X 10^3 (1.8-7.8); NEUTROPHILS % (AUTO) 71 % (42-75); PLATELET COUNT 169 10^3/uL (130-400); RED CELL DISTRIBUTION WIDTH 13.2 % (10.0-14.5); WHITE BLOOD COUNT 8.1 10^3/uL (4.3-11.0)
--- NOTE | 2019-12-01 14:21 | ED Lower Extremity ---
General Chief Complaint: Lower Extremity Stated Complaint: INCISION ISSUES Source: patient Exam Limitations: no limitations History of Present Illness Date Seen by Provider: Dec 01, 2019 Time Seen by Provider: 14:00 Initial Comments Patient presents to ED with complaints or swelling, bruising, and pain to right groin at site where he had a heart cath last . Patient states he was discharged home on Friday and has been limiting his activity to walking since he arrived home. Onset: last week Severity: mild Pain/Injury Location: right leg Allergies and Home Medications Allergies Coded Allergies: lisinopril (Verified Allergy, Severe, 11/25/19) FACIAL SWELLING Home Medications Amlodipine Besylate 10 Mg Tablet, 10 MG PO DAILY, (Reported) Aspirin 81 Mg Tab.chew, 81 MG PO DAILY Prescribed by: YULIET ULLOA on 11/28/19 1255 Atenolol 25 Mg Tablet, 25 MG PO DAILY, (Reported) Atorvastatin Calcium 40 Mg Tablet, 40 MG PO HS Prescribed by: YULIET ULLOA on 11/28/19 1255 Diphenhydramine HCl 25 Mg Capsule, 25-50 MG PO Q6H PRN for ALLERGY SYMPTOMS, (Reported) Losartan Potassium 100 Mg Tablet, 100 MG PO DAILY, (Reported) Multivitamin 1 Each Tablet, 1 EACH PO DAILY, (Reported) Omeprazole 20 Mg Capsule.dr, 20 MG PO BID, (Reported) Ticagrelor 90 Mg Tablet, 90 MG PO BID Prescribed by: YULIET ULLOA on 11/28/19 1255 Patient Home Medication List Home Medication List Reviewed: Yes Review of Systems Constitutional: no symptoms reported; No dizziness, No weakness EENTM: see HPI, no symptoms reported; No hearing loss, No ear pain Respiratory: no symptoms reported, see HPI; No cough, No dyspnea on exertion Cardiovascular: no symptoms reported, see HPI; No chest pain; edema, Hx of Intervention Gastrointestinal: no symptoms reported, see HPI Genitourinary: no symptoms reported, see HPI Musculoskeletal: no symptoms reported, see HPI Skin: see HPI, change in color, lumps (Hardened area to right groin), other (Bruising and edema from rt groin to rt knee) Psychiatric/Neurological: No Symptoms Reported; Denies Anxiety, Denies Headache, Denies Paresthesia Past Dahcvoe-Eziusa-Aeabzr Hx Patient Social History Recent Foreign Travel: No Contact w/Someone Who Travel: No Immunizations Up To Date Date of Pneumonia Vaccine: Nov 11, 2014 Family Medical History Hypertension 19 MOTHER G8 BROTHER Physical Exam Vital Signs Vital Signs - First Documented 12/01/19 14:00 Temp 36.4 Pulse 81 Resp 18 B/P (MAP) 167/86 (113) Pulse Ox 98 Capillary Refill : Height, Weight, BMI Height: '" Weight: lbs. oz. kg; BMI Method: General Appearance: WD/WN, no apparent distress Neck: full range of motion, normal inspection Cardiovascular: normal peripheral pulses, regular rate, rhythm Respiratory: lungs clear, normal breath sounds, no respiratory distress, no accessory muscle use Gastrointestinal: normal bowel sounds, non tender, soft Back: normal inspection, no vertebral tenderness Legs: left leg non-tender, left leg normal inspection; bilateral leg normal range of motion; right leg ecchymosis, right leg pain, right leg soft tissue tenderness, right leg swelling Knees: bilateral knee non-tender, bilateral knee normal inspection, bilateral knee normal range of motion, bilateral knee no evidence of injury Ankles: bilateral ankle non-tender, bilateral ankle normal inspection, bilateral ankle normal range of motion, bilateral ankle no evidence of injury Feet: bilateral foot non-tender, bilateral foot normal inspection, bilateral foot normal range of motion, bilateral foot no evidence of injury Neurologic/Tendon: normal sensation, normal motor functions Neurologic/Psychiatric: alert, normal mood/affect, oriented x 3 Skin: cool, ecchymosis Lymphatic: no adenopathy Progress/Results/Core Measures Results/Orders Lab Results Laboratory Tests Test 12/01/19 14:00 Range/Units White Blood Count 8.1 4.3-11.0 10^3/uL Red Blood Count 4.45 4.35-5.85 10^6/uL Hemoglobin 12.8 L 13.3-17.7 G/DL Hematocrit 37 L 40-54 % Mean Corpuscular Volume 83 80-99 FL Mean Corpuscular Hemoglobin 29 25-34 PG Mean Corpuscular Hemoglobin Concent 35 32-36 G/DL Red Cell Distribution Width 13.2 10.0-14.5 % Platelet Count 169 130-400 10^3/uL Mean Platelet Volume 10.1 7.4-10.4 FL Neutrophils (%) (Auto) 71 42-75 % Lymphocytes (%) (Auto) 16 12-44 % Monocytes (%) (Auto) 7 0-12 % Eosinophils (%) (Auto) 4 0-10 % Basophils (%) (Auto) 1 0-10 % Neutrophils # (Auto) 5.8 1.8-7.8 X 10^3 Lymphocytes # (Auto) 1.3 1.0-4.0 X 10^3 Monocytes # (Auto) 0.6 0.0-1.0 X 10^3 Eosinophils # (Auto) 0.4 H 0.0-0.3 10^3/uL Basophils # (Auto) 0.1 0.0-0.1 10^3/uL My Orders Orders - AGUSTINA CABALLERO APRN Cbc With Automated Diff (12/01/19 14:07) Us Right Low Ext [id number] (12/01/19 14:07) Vital Signs/I&O 12/01/19 14:00 Temp 36.4 Pulse 81 Resp 18 B/P (MAP) 167/86 (113) Pulse Ox 98 Progress Progress Note : Progress Note US tech reports no pseudo aneurysm or other complications seen. Departure Impression Primary Impression: Post-operative complication Disposition: 01 HOME, SELF-CARE Condition: Stable Departure-Patient Inst. Decision time for Depature: 15:41 Referrals: Milla SAWYER MD Patient Instructions: HEMATOMA Add. Discharge Instructions: Please keep follow-up appointment with with Dr. Sawyer. Continue current restrictions of no bending, lifting, etc until released by Dr. Sawyer All discharge instructions reviewed with patient and/or family. Voiced understanding. Copy Copies To 1: Milla SAWYER MD, PETER J APRN Dec 01, 2019 14:21
[2019-12-01 15:49] VITALS: BP 167/86
--- NOTE | 2019-12-02 09:05 | Diagnostic Imaging Report ---
INDICATION: Status post heart catheterization with bruising and swelling to the right groin. Grayscale, color-flow, and duplex Doppler evaluation of the right groin including the right common femoral artery, right common femoral vein and proximal superficial femoral artery was performed. There is normal triphasic waveforms within the right common femoral artery. Normal venous waveforms within the common femoral vein is identified. There is no evidence of an AV fistula. There are collateral vessels identified in the right groin, however, there is no evidence of a pseudoaneurysm. No hematoma is identified. IMPRESSION: No evidence of pseudoaneurysm or AV fistula. Dictated by: Dictated on workstation # [id number]
== END 2019-12-01 15:50 | disposition home or self-care (01) ==
LOC: EDUNIT# 13:54 → ER 13:57
DX: L76.32 Postprocedural hematoma of skin and subcutaneous tissue following other procedure (principal); Z88.8 Allergy status to other drugs, medicaments and biological substances; Z82.49 Family history of ischemic heart disease and other diseases of the circulatory system; Z79.82 Long term (current) use of aspirin
CPT/HCPCS: 36415; 85025; 93926

== ENCOUNTER 2021-05-11 19:32 | Emergency (ER) | payer MEDICARE ==
[~2021-05-11] VITALS: Ht 193 cm; Wt 113.6 kg
[~2021-05-11 19:32] MED LIST changes: +AMLO-251 PO; -AMLO10TA7 PO
--- NOTE | 2021-05-11 20:09 | ED Cough/URI ---
General Chief Complaint: Cough/Cold/Flu Symptoms Stated Complaint: FEVER,FATIGUE,HEADACHE, Nursing Triage Note: pt arrives ambulatory w/ c/o fever, fatigue, body aches and headache. Ambulatory to room attached to NIBP and SpO2 monitors. Source: patient Exam Limitations: no limitations History of Present Illness Date Seen by Provider: May 11, 2021 Time Seen by Provider: 19:58 Initial Comments Patient is a 71-year-old male with a history of coronary artery disease who presents to the emergency department today with a chief complaint of mild headache, significant fatigue, fever to 103 at home today, a little bit of diarrhea. Symptom onset primarily with fatigue on Friday, May 09. They had just come back from [facility] the day before. Patient is Covid vaccinated had his booster as well as flu shot in February of last year. Denies any cough or shortness of breath. Notably his room air sat oxygen saturations are 91%. He denies chest pain. No abdominal pain or nausea. He has had significantly decreased appetite today has not really eaten anything at all. No urinary complaints. No black or bloody stools. Always has a little bit of lower extremity swelling but no pain in his calves. Took Tylenol twice today for his fever of 103 once at 1:00 once at 7 PM. Is not a diabetic. Is a former smoker, does not require the use of inhalers. All other review of systems negative except as stated. Timing/Duration: other (3 days) Severity/Quality: no cough Associated Symptoms: fever/chills, headache, other (diarrhea) Allergies and Home Medications Allergies Coded Allergies: lisinopril (Verified Allergy, Severe, 11/25/19) FACIAL SWELLING Patient Home Medication List Home Medication List Reviewed: Yes Amlodipine Besylate (Amlodipine Besylate) 10 Mg Tablet, 10 MG PO DAILY, (Reported) Entered as Reported by: WEI CASTLE on 11/25/19 1236 Aspirin (Aspirin) 81 Mg Tab.chew, 81 MG PO DAILY Prescribed by: YULIET ULLOA on 11/28/19 1255 Atenolol (Atenolol) 25 Mg Tablet, 25 MG PO DAILY, (Reported) Entered as Reported by: WEI CASTLE on 11/25/19 1236 Atorvastatin Calcium (Lipitor) 40 Mg Tablet, 40 MG PO HS Prescribed by: YULIET ULLOA on 11/28/19 1255 Diphenhydramine HCl (Benadryl) 25 Mg Capsule, 25-50 MG PO Q6H PRN for ALLERGY SYMPTOMS, (Reported) Entered as Reported by: WEI CASTLE on 11/25/19 1236 Losartan Potassium (Losartan Potassium) 100 Mg Tablet, 100 MG PO DAILY, (Reported) Entered as Reported by: WEI CASTLE on 11/25/19 1236 Multivitamin (Multivitamin) 1 Each Tablet, 1 EACH PO DAILY, (Reported) Entered as Reported by: WEI CASTLE on 11/25/19 1236 Omeprazole (Omeprazole) 20 Mg Capsule.dr, 20 MG PO BID, (Reported) Entered as Reported by: WEI CASTLE on 11/25/19 1236 Ondansetron (Ondansetron Odt) 4 Mg Tab.rapdis, 4 MG PO Q8H PRN for nausea Prescribed by: TOMY FRANK on 05/11/21 2220 Ticagrelor (Brilinta) 90 Mg Tablet, 90 MG PO BID Prescribed by: YULIET ULLOA on 11/28/19 1255 Review of Systems Review of Systems Constitutional: see HPI, malaise EENTM: no symptoms reported Respiratory: no symptoms reported Cardiovascular: no symptoms reported Gastrointestinal: diarrhea Genitourinary: no symptoms reported Musculoskeletal: no symptoms reported Skin: no symptoms reported Psychiatric/Neurological: Headache, Weakness All Other Systems Reviewed Negative Unless Noted: Yes Past Uyibfxy-Fhtyhw-Vcoqrt Hx Past Medical History Surgeries: Yes Coronary Stent Respiratory: No Cardiac: Yes Heart Attack Neurological: No Genitourinary: No Gastrointestinal: No Musculoskeletal: No Endocrine: No HEENT: No Cancer: No Psychosocial: No Integumentary: No Family Medical History Hypertension 19 MOTHER G8 BROTHER Physical Exam Vital Signs - First Documented 05/11/21 19:53 Temp 36.9 Pulse 86 Resp 20 B/P (MAP) 144/84 (104) Pulse Ox 93 O2 Delivery Room Air Capillary Refill : Less Than 3 Seconds Height: '" Weight: lbs. oz. kg; 30.00 BMI Method: General Appearance: WD/WN, no apparent distress Eyes: Bilateral Eye Normal Inspection, Bilateral Eye PERRL, Bilateral Eye EOMI HEENT: PERRL/EOMI, TMs normal, pharynx normal, other (slightly dry oral mucosa) Respiratory: lungs clear, normal breath sounds, no respiratory distress, no accessory muscle use, plerual rub (with deep breaths sats go up to 94-96%) Cardiovascular: regular rate, rhythm Gastrointestinal: normal bowel sounds, non tender, soft Extremities: non-tender, normal inspection, no pedal edema, no calf tenderness, normal capillary refill Neurologic/Psychiatric: alert, normal mood/affect, oriented x 3 Skin: normal color, diaphoresis Focused Exam Lactate Level 05/11/21 20:25: Lactic Acid Level 0.96 Lactic Acid Level Laboratory Tests Test 05/11/21 20:25 Lactic Acid Level 0.96 MMOL/L (0.50-2.00) Progress/Results/Core Measures Suspected Sepsis SIRS Temperature: Pulse: 86 Respiratory Rate: 20 Laboratory Tests 05/11/21 20:25: White Blood Count 15.9H Blood Pressure 144 /84 Mean: 104 05/11/21 20:25: Lactic Acid Level 0.96 Laboratory Tests 05/11/21 20:25: Creatinine 0.83, INR Comment 1.1, Platelet Count 79L, Total Bilirubin 2.0H Results/Orders Lab Results Laboratory Tests Test 05/11/21 20:25 05/11/21 20:38 05/11/21 21:07 Range/Units White Blood Count 15.9 H 4.3-11.0 10^3/uL Red Blood Count 4.62 4.30-5.52 10^6/uL Hemoglobin 13.4 13.3-17.7 g/dL Hematocrit 39 L 40-54 % Mean Corpuscular Volume 85 80-99 fL Mean Corpuscular Hemoglobin 29 25-34 pg Mean Corpuscular Hemoglobin Concent 34 32-36 g/dL Red Cell Distribution Width 12.6 10.0-14.5 % Platelet Count 79 L 130-400 10^3/uL Mean Platelet Volume 11.0 9.0-12.2 fL Immature Granulocyte % (Auto) 1 % Neutrophils (%) (Auto) 82 H 42-75 % Lymphocytes (%) (Auto) 7 L 12-44 % Monocytes (%) (Auto) 10 0-12 % Eosinophils (%) (Auto) 0 0-10 % Basophils (%) (Auto) 1 0-10 % Neutrophils # (Auto) 13.1 H 1.8-7.8 10^3/uL Lymphocytes # (Auto) 1.0 1.0-4.0 10^3/uL Monocytes # (Auto) 1.6 H 0.0-1.0 10^3/uL Eosinophils # (Auto) 0.0 0.0-0.3 10^3/uL Basophils # (Auto) 0.1 0.0-0.1 10^3/uL Immature Granulocyte # (Auto) 0.1 0.0-0.1 10^3/uL Neutrophils % (Manual) 85 % Lymphocytes % (Manual) 7 % Monocytes % (Manual) 8 % Blood Morphology Comment NORMAL Prothrombin Time 14.9 H 12.2-14.7 SEC INR Comment 1.1 0.8-1.4 Activated Partial Thromboplast Time 34 24-35 SEC Sodium Level 135 135-145 MMOL/L Potassium Level 2.8 L 3.6-5.0 MMOL/L Chloride Level 97 L 98-107 MMOL/L Carbon Dioxide Level 25 21-32 MMOL/L Anion Gap 13 5-14 MMOL/L Blood Urea Nitrogen 11 7-18 MG/DL Creatinine 0.83 0.60-1.30 MG/DL Estimat Glomerular Filtration Rate 94 BUN/Creatinine Ratio 13 Glucose Level 119 H 70-105 MG/DL Lactic Acid Level 0.96 0.50-2.00 MMOL/L Calcium Level 9.2 8.5-10.1 MG/DL Corrected Calcium 9.4 8.5-10.1 MG/DL Total Bilirubin 2.0 H 0.1-1.0 MG/DL Aspartate Amino Transf (AST/SGOT) 32 5-34 U/L Alanine Aminotransferase (ALT/SGPT) 31 0-55 U/L Alkaline Phosphatase 105 40-136 U/L Total Protein 6.9 6.4-8.2 GM/DL Albumin 3.7 3.2-4.5 GM/DL Influenza Type A Antigen NEGATIVE NEGATIVE Influenza Type B Antigen NEGATIVE NEGATIVE SARS-CoV-2 RNA (RT-PCR) Not Detected Negative Urine Color YELLOW Urine Clarity CLEAR Urine pH 7.0 5-9 Urine Specific [place] <=1.005 1.016-1.022 Urine Protein NEGATIVE NEGATIVE Urine Glucose (UA) NEGATIVE NEGATIVE Urine Ketones NEGATIVE NEGATIVE Urine Nitrite NEGATIVE NEGATIVE Urine Bilirubin NEGATIVE NEGATIVE Urine Urobilinogen 1.0 < = 1.0 MG/DL Urine Leukocyte Esterase NEGATIVE NEGATIVE Urine RBC (Auto) TRACE-I H NEGATIVE Urine RBC RARE /HPF Urine WBC RARE /HPF Urine Squamous Epithelial Cells RARE /HPF Urine Crystals NONE /LPF Urine Bacteria TRACE /HPF Urine Casts NONE /LPF Urine Mucus NEGATIVE /LPF Urine Culture Indicated NO My Orders Orders - TOMY FRANK MD Cbc With Automated Diff (05/11/21 20:04) Comprehensive Metabolic Panel (05/11/21 20:04) Blood Culture (05/11/21 20:04) Sputum Culture (05/11/21 20:04) Urinalysis (05/11/21 20:04) Urine Culture (05/11/21 20:04) Protime With Inr (05/11/21 20:04) Partial Thromboplastin Time (05/11/21 20:04) Chest 1 View, Ap/Pa Only (05/11/21 20:04) Ed Iv/Invasive Line Start (05/11/21 20:04) Ed Iv/Invasive Line Start (05/11/21 20:04) Vital Signs Adult Sepsis Patie Q15M (05/11/21 20:04) O2 (05/11/21 20:04) Remove Rings In Anticipation O (05/11/21 20:04) Lactic Acid Analyzer (05/11/21 20:04) Covid 19 Inhouse Test (05/11/21 20:04) Isolation Central Supply Req (05/11/21 20:04) Ns Iv 1000 Ml (Sodium Chloride 0.9%) (05/11/21 20:15) Influenza A & B Antigens (05/11/21 20:25) Manual Differential (05/11/21 20:25) Coronavirus Sars-Cov-2 So 2018 (05/11/21 20:25) Potassium Cl 10meq/50ml Ivpb (Kcl 10 Meq (05/11/21 21:15) Potassium Chloride (Tablet) (K Dur Table (05/11/21 21:15) Ns Iv 500 Ml (Sodium Chloride 0.9%) (05/11/21 21:47) Medications Given in ED Current Medications Medications Dose Ordered Sig/Sukhdev Route Start Time Stop Time Status Last Admin Dose Admin Potassium Chloride 40 meq ONCE ONCE PO 05/11/21 21:15 05/11/21 21:18 DC 05/11/21 21:37 40 MEQ Vital Signs/I&O 05/11/21 05/11/21 05/11/21 19:53 21:09 22:43 Temp 36.9 36.8 37.2 Pulse 86 75 Resp 20 22 B/P (MAP) 144/84 (104) 127/75 Pulse Ox 93 92 O2 Delivery Room Air Room Air Capillary Refill : Less Than 3 Seconds Blood Pressure Mean: 104 Progress Note : Time: 22:44 Progress Note Multiple reevaluations, Malina is resting comfortably, temp is rechecked, is 99.1. Oxygen saturations while at rest in the bed are 93% on room air. He was dropping as low as 90%. No increased work of breathing/respiratory distress. Chest x-ray shows bibasilar atelectasis. He does have an elevated white blood cell count of 15,000. I do suspect Covid however his Torrez rapid test was negative tonight. I have recommended that he and his quarantine until they get his send out results tomorrow. I am going to go ahead and prescribe Paxlovid for him. We did discuss the indications for this medication. would like to proceed. I am giving him a supplement of potassium for the next 5 days as well as some Zofran. Patient was ambulated in the hernandez, when he got up he was about 88-89% but once he started walking, he stayed between 90-93%. No complaints of SOB or lightheadedness or dizziness. He follows with Dr. Espinoza. I will send the chart to his office. Recommend a call on Friday morning for follow-up appointment next week. I encouraged fluids. I encouraged a pulse oximeter for home. Everything has been discussed with them they verbalized understanding with the plan of care and are comfortable with it. All questions are sought and answered Diagnostic Imaging Diagonstic Imaging: Xray Plain Films/CT/US/NM/MRI: chest Comments [facility], [place] NAME: MALINA DUARTE MED REC#: [id number] PT STATUS: REG ER : 1950 PHYSICIAN: TOMY FRANK MD ADMIT DATE: 05/11/21/ER Signed Date of Exam:05/11/21 CHEST 1 VIEW, AP/PA ONLY INDICATION: Fever, fatigue, body aches and headache. EXAMINATION: Chest, 05/11/2021. COMPARISON: 11/25/2019. FINDINGS: There is minimal bibasilar atelectasis. There is eventration of the right hemidiaphragm similar to previous imaging. Heart is prominent. Pulmonary vasculature normal. No infiltrates, effusions or pneumothorax. IMPRESSION: 1. Bibasilar atelectasis or scar. 2. Cardiomegaly. Dictated by: Dictated on workstation # [id number] Dict: 05/11/212124 Trans: 05/11/212155 PJE [id number] Interpreted by: FOREST SCHOFIELD MD Electronically signed by: FOREST SCHOFIELD MD 05/11/212155 Departure Impression Primary Impression: Viral syndrome Additional Impressions: Person under investigation for COVID-19 Hypokalemia Disposition: HOME, SELF-CARE Condition: Stable Departure-Patient Inst. Decision time for Depature: 22:16 Referrals: MELBA ESPINOZA DO Patient Instructions: COVID-19 (DC), Hypokalemia (DC) Add. Discharge Instructions: Drink lots of fluids to stay well hydrated. If your COVID test comes back POSITIVE, start the Paxlovid and take as directed. DO NOT TAKE your Statin medication while taking the Paxlovid. Once you are done with the Paxlovid, you may restart the statin drug, Zofran, 4mg, every 8 hours as needed for nausea. Take the potassium daily for the next 5 days. You will need your level rechecked in the next week. You should get your "send out" COVID test results tomorrow - the hospital will call. Please quarantine like you have COVID until you get these results. Continue to alternate tylenol and Ibuprofen for any fever over 100.4, body aches. Return to the Emergency Department for any new, concerning, emergent complaints. Scripts Nirmatrelvir/Ritonavir (Paxlovid Co-Pack (Eua)) 1 Each Tablet 1 EACH PO UD for 5 Days, #1 EACH Prov: TOMY FRANK MD 05/11/21 Potassium Chloride (K-Tab ER) 20 Meq Tablet.er 20 MEQ PO DAILY for 5 Days, #5 TAB Prov: TOMY FRANK MD 05/11/21 Ondansetron (Ondansetron Odt) 4 Mg Tab.rapdis 4 MG PO Q8H PRN for nausea, #20 TAB Prov: TOMY FRANK MD 05/11/21 Copy Copies To 1: MELBA ESPINOZA KATHRYN M MD May 11, 2021 20:09
[2021-05-11] MEDS ORDERED: NS IV 1000 ML 1,000 ML IV SCH (20:15)
[2021-05-11 20:44] LABS: BASOPHILS # (AUTO) 0.1 10^3/uL (0.0-0.1); BASOPHILS % (AUTO) 1 % (0-10); EOSINOPHILS % (AUTO) 0 % (0-10); HEMATOCRIT 39 % (40-54); HEMOGLOBIN 13.4 g/dL (13.3-17.7); LYMPHOCYTES % (AUTO) 7 % (12-44); MEAN CORPUSCULAR HEMOGLOBIN 29 pg (25-34); MEAN CORPUSCULAR HGB CONC 34 g/dL (32-36); MEAN CORPUSCULAR VOLUME 85 fL (80-99); MONOCYTES # (AUTO) 1.6 10^3/uL (0.0-1.0); MONOCYTES % (AUTO) 10 % (0-12); NEUTROPHILS # (AUTO) 13.1 10^3/uL (1.8-7.8); NEUTROPHILS % (AUTO) 82 % (42-75); PLATELET COUNT 79 10^3/uL (130-400); WHITE BLOOD COUNT 15.9 10^3/uL (4.3-11.0)
[2021-05-11 20:51] LABS: ALBUMIN 3.7 GM/DL (3.2-4.5); INR 1.1 (0.8-1.4); POTASSIUM 2.8 MMOL/L (3.6-5.0); PROTHROMBIN TIME PATIENT 14.9 SEC (12.2-14.7)
[2021-05-11 20:52] LABS: CALCIUM 9.2 MG/DL (8.5-10.1)
[2021-05-11 20:53] LABS: TOTAL PROTEIN 6.9 GM/DL (6.4-8.2)
[2021-05-11 20:57] LABS: CREATININE SERUM 0.83 MG/DL (0.60-1.30)
[2021-05-11 21:09] VITALS: BP 127/75
[2021-05-11 21:11] LABS: BILIRUBIN,URINE NEGATIVE (NEGATIVE); CLARITY,URINE CLEAR; COLOR,URINE YELLOW; GLUCOSE, URINE (UA) NEGATIVE (NEGATIVE); KETONES,URINE NEGATIVE (NEGATIVE); LEUKOCYTE ESTERASE ,URINE NEGATIVE (NEGATIVE); NITRITE,URINE NEGATIVE (NEGATIVE); PROTEIN,URINE NEGATIVE (NEGATIVE)
[2021-05-11] MEDS ORDERED: POTASSIUM CL 10MEQ/50ML IVPB 50 ML IV ONE (21:15)
[2021-05-11] MEDS ORDERED: KCL 20 MEQ TAB (K-DUR) PO ONE (21:15)
[2021-05-11 21:19] LABS: BACTERIA,URINE TRACE /HPF; RBC,URINE RARE /HPF; SQUAMOUS EPITHELIAL CELL,UR RARE /HPF; WBC,URINE RARE /HPF
[2021-05-11 21:27] LABS: LYMPHOCYTES % (MANUAL) 7 %; MONOCYTES % (MANUAL) 8 %; NEUTROPHILS % (MANUAL) 85 %; RBC MORPH NORMAL
--- NOTE | 2021-05-11 21:32 | Diagnostic Imaging Report ---
INDICATION: Fever, fatigue, body aches and headache. EXAMINATION: Chest, 05/11/2021. COMPARISON: 11/25/2019. FINDINGS: There is minimal bibasilar atelectasis. There is eventration of the right hemidiaphragm similar to previous imaging. Heart is prominent. Pulmonary vasculature normal. No infiltrates, effusions or pneumothorax. IMPRESSION: 1. Bibasilar atelectasis or scar. 2. Cardiomegaly. Dictated by: Dictated on workstation # [id number]
[2021-05-11] MEDS ORDERED: NS IV 500 ML 500 ML ONE (21:47)
[2021-05-11] MEDS ORDERED: ONDA4TAB11 PO (22:20)
[2021-05-11] MEDS ORDERED: POTA-53 PO (22:47)
[2021-05-11] MEDS ORDERED: NIRM1TAB PO (22:54)
[2021-05-12] MEDS ORDERED: CLOP75TA69 PO (17:36)
[2021-05-12] MEDS ORDERED: HYDR-3924 PO (17:36)
[2021-05-12] MEDS ORDERED: HYDR25TA4 PO (17:36)
== END 2021-05-11 23:04 | disposition home or self-care (01) ==
LOC: EDUNIT# 19:32 → ER 19:40
DX: B34.9 Viral infection, unspecified (principal); E87.6 Hypokalemia; I25.2 Old myocardial infarction; Z20.822 Contact with and (suspected) exposure to COVID-19; Z87.891 Personal history of nicotine dependence; Z79.82 Long term (current) use of aspirin
CPT/HCPCS: 36415; 71045; 80053; 81000; 83605; 85007; 85027; 85610; 85730; 87040; 87088; 87635; 87636; 87804

== ENCOUNTER 2021-05-12 13:02 | Inpatient (IN) | payer MEDICARE ==
[~2021-05-12] VITALS: Ht 193 cm; Wt 112.0 kg
[~2021-05-12 13:02] MED LIST changes: +NIRM1TAB PO; +ONDA4TAB11 PO; +POTA-53 PO
[2021-05-12 13:39] LABS: EOSINOPHILS % (AUTO) 0 % (0-10); HEMATOCRIT 39 % (40-54); PLATELET COUNT 101 10^3/uL (130-400)
[2021-05-12 13:41] LABS: BASOPHILS # (AUTO) 0.1 10^3/uL (0.0-0.1); BASOPHILS % (AUTO) 0 % (0-10); HEMOGLOBIN 13.4 g/dL (13.3-17.7); LYMPHOCYTES # (AUTO) 0.8 10^3/uL (1.0-4.0); LYMPHOCYTES % (AUTO) 4 % (12-44); MEAN CORPUSCULAR HEMOGLOBIN 29 pg (25-34); MEAN CORPUSCULAR HGB CONC 34 g/dL (32-36); MEAN CORPUSCULAR VOLUME 85 fL (80-99); MEAN PLATELET VOLUME 11.4 fL (9.0-12.2); MONOCYTES # (AUTO) 1.6 10^3/uL (0.0-1.0); MONOCYTES % (AUTO) 8 % (0-12); NEUTROPHILS # (AUTO) 16.1 10^3/uL (1.8-7.8); NEUTROPHILS % (AUTO) 86 % (42-75); WHITE BLOOD COUNT 18.6 10^3/uL (4.3-11.0)
[2021-05-12 13:44] LABS: ALBUMIN 3.6 GM/DL (3.2-4.5); INR 1.2 (0.8-1.4); POTASSIUM 2.9 MMOL/L (3.6-5.0); PROTHROMBIN TIME PATIENT 15.5 SEC (12.2-14.7)
[2021-05-12 13:45] LABS: CALCIUM 9.1 MG/DL (8.5-10.1)
[2021-05-12] MEDS ORDERED: LACTATED RINGERS 1,000 ML IV ONE (13:45)
[2021-05-12 13:47] LABS: TOTAL PROTEIN 6.9 GM/DL (6.4-8.2)
[2021-05-12 13:48] LABS: BILIRUBIN,TOTAL 2.1 MG/DL (0.1-1.0)
[2021-05-12 13:50] LABS: CREATININE SERUM 0.99 MG/DL (0.60-1.30)
[2021-05-12 14:02] LABS: BAND NEUTROPHILS 0 %; BASOPHILS % (MANUAL) 0 %; EOSINOPHILS % (MANUAL) 0 %; LYMPHOCYTES % (MANUAL) 3 %; MONOCYTES % (MANUAL) 10 %; NEUTROPHILS % (MANUAL) 87 %; RBC MORPH NORMAL
[2021-05-12 14:14] LABS: MAGNESIUM 1.1 MG/DL (1.6-2.4)
[2021-05-12] MEDS ORDERED: MAGNESIUM 1 GM/100 ML IVPB 100 ML IV ONE (14:15)
--- NOTE | 2021-05-12 14:26 | Diagnostic Imaging Report ---
EXAMINATION: Chest 1 view HISTORY: Sepsis. COMPARISON: 05/11/2021. FINDINGS: The lung volumes are normal. No focal consolidation is seen. No large pleural effusion or pneumothorax is seen. The cardiomediastinal silhouette is stable in size. There is calcified aortic atherosclerotic plaque. No acute osseous abnormality is seen. IMPRESSION: 1. Stable cardiomegaly. No overt pulmonary edema or focal consolidations. Dictated by: Dictated on workstation # [id number]
--- NOTE | 2021-05-12 14:59 | ED General ---
General Chief Complaint: Fever-Adult/Adol Stated Complaint: 105 TEMP Nursing Triage Note: PT AMB TO ER WITH C/O FEVER THAT WONT STAY DOWN. PT WAS SEEN HERE LAST NIGHT FOR SAME SX. STILL WAITING ON SEND OUT COVID TEST RESULTS. Source of Information: Patient, Old Records Exam Limitations: No Limitations History of Present Illness Date Seen by Provider: May 12, 2021 Time Seen by Provider: 13:15 Initial Comments This 71-year-old gentleman presents to the emergency room with complaints of some shortness of breath, intractable fever, myalgia, diaphoresis, and diarrhea that resolved yesterday. He was seen in this ER yesterday and hydrated. Electrolytes were replaced. Oxygen saturations were marginal but he returned home. On arrival his oxygen saturation is 88% on room air. He does not normally require oxygen supplementation at home. His COVID-19 test from yesterday is still pending. The rapid test on the [employer] machine was negative, but the confirmatory test is still pending. He has been vaccinated and boosted for COVID-19. Allergies and Home Medications Allergies Coded Allergies: lisinopril (Verified Allergy, Severe, 05/12/21) FACIAL SWELLING adhesive tape (Verified Allergy, Mild, Rash, 05/12/21) Patient Home Medication List Home Medication List Reviewed: Yes Amlodipine Besylate (Amlodipine Besylate) 10 Mg Tablet, 10 MG PO DAILY, (Reported) Entered as Reported by: WEI CASTLE on 11/25/19 1236 Last Action: Continued Aspirin (Aspirin) 81 Mg Tab.chew, 81 MG PO DAILY Prescribed by: YULIET ULLOA on 11/28/19 125 Last Action: Continued Atenolol (Atenolol) 25 Mg Tablet, 25 MG PO DAILY, (Reported) Entered as Reported by: WEI CASTLE on 11/25/19 1236 Last Action: Continued Atorvastatin Calcium (Lipitor) 40 Mg Tablet, 40 MG PO HS Prescribed by: YULIET ULLOA on 11/28/19 125 Last Action: Held Clopidogrel Bisulfate (Plavix) 75 Mg Tablet, 75 MG PO HS, (Reported) Entered as Reported by: JULIO SCHROEDER on 05/12/21 5516 Last Action: Held Diphenhydramine HCl (Benadryl) 25 Mg Capsule, 25-50 MG PO Q6H PRN for ALLERGY SYMPTOMS, (Reported) Entered as Reported by: WEI CASTLE on 11/25/19 123 Last Action: Held Hydralazine HCl (Hydralazine HCl) 50 Mg Tablet, 50 MG PO BID, (Reported) Entered as Reported by: JULIO SCHROEDER on 05/12/211735 Last Action: Held Hydrochlorothiazide (Hydrochlorothiazide) 25 Mg Tablet, 25 MG PO DAILY, (Reported) Entered as Reported by: JULIO SCHROEDER on 05/12/211735 Last Action: Held Losartan Potassium (Losartan Potassium) 100 Mg Tablet, 100 MG PO DAILY, (Reported) Entered as Reported by: WEI CASTLE on 11/25/19 123 Last Action: Held Multivitamin (Multivitamin) 1 Each Tablet, 1 EACH PO DAILY, (Reported) Entered as Reported by: WEI CASTLE on 11/25/191235 Last Action: Held Omeprazole (Omeprazole) 20 Mg Capsule.dr, 20 MG PO BID, (Reported) Entered as Reported by: WEI CASTLE on 11/25/191235 Last Action: Continued Ticagrelor (Brilinta) 90 Mg Tablet, 90 MG PO BID Prescribed by: YULIET ULLOA on 11/28/19 1255 Last Action: Held Discontinued Medications Nirmatrelvir/Ritonavir (Paxlovid Co-Pack (Eua)) 1 Each Tablet, 1 EACH PO UD Discontinued Reason: No Longer Taking Prescribed by: TOMY FRANK on 05/11/21 225 Last Action: Discontinued Ondansetron (Ondansetron Odt) 4 Mg Tab.rapdis, 4 MG PO Q8H PRN for nausea Discontinued Reason: No Longer Taking Prescribed by: TOMY FRANK on 05/11/212219 Last Action: Discontinued Potassium Chloride (K-Tab ER) 20 Meq Tablet.er, 20 MEQ PO DAILY Discontinued Reason: No Longer Taking Prescribed by: TOMY FRANK on 05/11/212246 Last Action: Discontinued Review of Systems Review of Systems Constitutional: see HPI EENTM: no symptoms reported Respiratory: see HPI Cardiovascular: no symptoms reported Gastrointestinal: see HPI Genitourinary: no symptoms reported Musculoskeletal: see HPI Skin: no symptoms reported Psychiatric/Neurological: No Symptoms Reported Hematologic/Lymphatic: No Symptoms Reported Immunological/Allergic: no symptoms reported Past Kbebrkz-Obcafb-Zmphkx Hx Patient Social History Tobacco Use?: No Smoking Status: Former Smoker Substance use?: No Alcohol Use?: Yes Alcohol type: Beer Alcohol Frequency: Once in a while Pt feels they are or have been: No Immunizations Up To Date Influenza Vaccine Up-to-Date: Yes; Up-to-Date First/Initial COVID19 Vaccinat: may 2020 Second COVID19 Vaccination Al: june 2020 COVID19 Vaccine 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: 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 Past Medical History Surgery/Hospitalization HX: heart attack, htn Surgeries: Yes Coronary Stent Respiratory: No Cardiac: Yes Coronary Artery Disease, Heart Attack, Hypertension Neurological: No Genitourinary: No Gastrointestinal: No Musculoskeletal: No Endocrine: No HEENT: No Cancer: No Psychosocial: No Integumentary: No Family Medical History Hypertension 19 MOTHER G8 BROTHER Physical Exam-Suspected Sepsis Physical Exam Vital Signs Vital Signs - First Documented 05/12/21 13:18 Temp 38.9 Pulse 90 Resp 20 B/P (MAP) 125/92 (103) Pulse Ox 96 O2 Delivery Nasal Cannula O2 Flow Rate 2.00 Capillary Refill : Blood Pressure Mean: 103 Height, Weight, BMI Height: '" Weight: lbs. oz. 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 Norm as Tested Skin: normal color, warm/dry Focused Exam Lactate Level 05/12/21 13:20: Lactic Acid Level 1.35 Lactic Acid Level Progress/Results/Core Measures Suspected Sepsis SIRS Temperature: Pulse: 90 Respiratory Rate: 20 Laboratory Tests 05/12/21 13:20: White Blood Count 18.6H Blood Pressure 125 /92 Mean: 103 05/12/21 13:20: Lactic Acid Level 1.35 Laboratory Tests 05/12/21 13:20: Creatinine 0.99, INR Comment 1.2, Platelet Count 101L, Total Bilirubin 2.1H Results/Orders Lab Results Laboratory Tests Test 05/12/21 13:20 05/12/21 15:10 Range/Units White Blood Count 18.6 H 4.3-11.0 10^3/uL Red Blood Count 4.63 4.30-5.52 10^6/uL Hemoglobin 13.4 13.3-17.7 g/dL Hematocrit 39 L 40-54 % Mean Corpuscular Volume 85 80-99 fL Mean Corpuscular Hemoglobin 29 25-34 pg Mean Corpuscular Hemoglobin Concent 34 32-36 g/dL Red Cell Distribution Width 12.3 10.0-14.5 % Platelet Count 101 L 130-400 10^3/uL Mean Platelet Volume 11.4 9.0-12.2 fL Immature Granulocyte % (Auto) 1 % Neutrophils (%) (Auto) 86 H 42-75 % Lymphocytes (%) (Auto) 4 L 12-44 % Monocytes (%) (Auto) 8 0-12 % Eosinophils (%) (Auto) 0 0-10 % Basophils (%) (Auto) 0 0-10 % Neutrophils # (Auto) 16.1 H 1.8-7.8 10^3/uL Lymphocytes # (Auto) 0.8 L 1.0-4.0 10^3/uL Monocytes # (Auto) 1.6 H 0.0-1.0 10^3/uL Eosinophils # (Auto) 0.0 0.0-0.3 10^3/uL Basophils # (Auto) 0.1 0.0-0.1 10^3/uL Immature Granulocyte # (Auto) 0.1 0.0-0.1 10^3/uL Neutrophils % (Manual) 87 % Lymphocytes % (Manual) 3 % Monocytes % (Manual) 10 % Eosinophils % (Manual) 0 % Basophils % (Manual) 0 % Band Neutrophils 0 % Percent Immature Platelet Fraction 9.7 H 0.0-7.6 % Blood Morphology Comment NORMAL Prothrombin Time 15.5 H 12.2-14.7 SEC INR Comment 1.2 0.8-1.4 Activated Partial Thromboplast Time 39 H 24-35 SEC D-Dimer 0.73 H 0.00-0.49 UG/ML Sodium Level 135 135-145 MMOL/L Potassium Level 2.9 L 3.6-5.0 MMOL/L Chloride Level 99 98-107 MMOL/L Carbon Dioxide Level 24 21-32 MMOL/L Anion Gap 12 5-14 MMOL/L Blood Urea Nitrogen 10 7-18 MG/DL Creatinine 0.99 0.60-1.30 MG/DL Estimat Glomerular Filtration Rate 81 BUN/Creatinine Ratio 10 Glucose Level 144 H 70-105 MG/DL Lactic Acid Level 1.35 0.50-2.00 MMOL/L Calcium Level 9.1 8.5-10.1 MG/DL Corrected Calcium 9.4 8.5-10.1 MG/DL Magnesium Level 1.1 *L 1.6-2.4 MG/DL Total Bilirubin 2.1 H 0.1-1.0 MG/DL Aspartate Amino Transf (AST/SGOT) 25 5-34 U/L Alanine Aminotransferase (ALT/SGPT) 30 0-55 U/L Alkaline Phosphatase 103 40-136 U/L Total Creatine Kinase 92 30-200 U/L C-Reactive Protein High Sensitivity 28.11 H 0.00-0.50 MG/DL Total Protein 6.9 6.4-8.2 GM/DL Albumin 3.6 3.2-4.5 GM/DL Procalcitonin 0.37 H <0.10 NG/ML Urine Color YELLOW Urine Clarity CLEAR Urine pH 7.0 5-9 Urine Specific Riva <=1.005 1.016-1.022 Urine Protein NEGATIVE NEGATIVE Urine Glucose (UA) NEGATIVE NEGATIVE Urine Ketones NEGATIVE NEGATIVE Urine Nitrite NEGATIVE NEGATIVE Urine Bilirubin NEGATIVE NEGATIVE Urine Urobilinogen 2.0 < = 1.0 MG/DL Urine Leukocyte Esterase NEGATIVE NEGATIVE Urine RBC (Auto) TRACE-I H NEGATIVE Urine RBC RARE /HPF Urine WBC NONE /HPF Urine Squamous Epithelial Cells NONE /HPF Urine Crystals NONE /LPF Urine Bacteria NEGATIVE /HPF Urine Casts NONE /LPF Urine Mucus NEGATIVE /LPF Urine Culture Indicated CULTURE PENDING My Orders Orders - JUNAID LAUGHLIN MD Cbc With Automated Diff (05/12/21 13:23) Comprehensive Metabolic Panel (05/12/21 13:23) Blood Culture (05/12/21 13:23) Sputum Culture (05/12/21 13:23) Urinalysis (05/12/21 13:23) Urine Culture (05/12/21 13:23) Protime With Inr (2/5/22 13:23) Partial Thromboplastin Time (05/12/21 13:23) Chest 1 View, Ap/Pa Only (05/12/21 13:23) Ed Iv/Invasive Line Start (05/12/21 13:23) Ed Iv/Invasive Line Start (05/12/21 13:23) Vital Signs Adult Sepsis Patie Q15M (05/12/21 13:23) O2 (05/12/21 13:23) Remove Rings In Anticipation O (05/12/21 13:23) Lactic Acid Analyzer (05/12/21 13:23) Hs C Reactive Protein (05/12/21 13:23) Magnesium (05/12/21 13:23) Procalcitonin (Pct) (05/12/21 13:23) Lactated Ringers (Lr 1000 Ml Iv Solution (05/12/21 13:45) Manual Differential (05/12/21 13:20) Magnesium 1 Gm/100 Ml Ivpb (Magnesium Little (05/12/21 14:15) Fibrin Degradation Products (05/12/21 14:50) Potassium Cl 10meq/50ml Ivpb (Kcl 10 Meq (05/12/21 15:00) Cefepime Injection (Maxipime Injection) (05/12/21 15:15) Ns Iv 500 Ml (Sodium Chloride 0.9%) (05/12/21 15:30) Ct Angio Chest W (05/12/21 15:45) Iohexol Injection (Omnipaque 350 Mg/Ml 1 (05/12/21 16:15) Received Contrast (Hold Metformin- Contr (05/12/21 16:15) Ns (Ivpb) (Sodium Chloride 0.9% Ivpb Bag (05/12/21 16:15) Sodium Chloride Flush (Catheter Flush Sy (05/12/21 16:15) Medications Given in ED Current Medications Medications Dose Ordered Sig/Sukhdev Route Start Time Stop Time Status Last Admin Dose Admin Lactated Ringer's 1,000 ml @ 0 mls/hr Q0M ONCE IV 05/12/21 13:45 05/12/21 13:46 DC 05/12/21 13:49 1,000 MLS/HR Magnesium Sulfate/ Dextrose 100 ml @ 100 mls/hr ONCE ONCE IV 05/12/21 14:15 05/12/21 15:14 DC 05/12/21 14:15 100 MLS/HR Potassium Chloride 50 ml @ 50 mls/hr ONCE ONCE IV 05/12/21 15:00 05/12/21 15:59 DC 05/12/21 15:49 50 MLS/HR Vital Signs/I&O 05/12/21 05/12/21 05/12/21 05/12/21 13:18 13:20 15:52 16:26 Temp 38.9 38.9 38.0 Pulse 90 80 80 Resp 20 18 20 B/P (MAP) 125/92 (103) 132/78 130/72 (91) Pulse Ox 96 96 95 96 O2 Delivery Nasal Cannula Nasal Cannula Nasal Cannula Room Air O2 Flow Rate 2.00 2.00 2.00 2.00 05/12/21 05/12/21 17:38 17:54 Temp 38.0 Pulse Ox 96 O2 Delivery Nasal Cannula O2 Flow Rate 2.00 Capillary Refill : Blood Pressure Mean: 103 Progress Note : Progress Note Patient was seen and evaluated. IV fluids were infused. He was found to be significantly hypokalemic and hypomagnesemic. Replacement of both electrolytes was initiated with IV therapy in the ER. Although no specific source of infection was identified until CT angiogram, he was empirically treated with cefepime for suspected bacterial infection and sepsis. COVID-19 confirmatory test was still pending at the time of admission, and he was considered a person under investigation. D-dimer was elevated and patient was taken to CT for angiogram on his way up to the fourth floor. CODE STATUS was discussed and patient wishes to remain full code. Diagnostic Imaging Diagonstic Imaging: Xray Plain Films/CT/US/NM/MRI: chest Comments NAME: MALINA DUARTE MED REC#: [id number] PT STATUS: REG ER : 1950 PHYSICIAN: JUNAID LAUGHLIN MD ADMIT DATE: 05/12/21/ER Signed Date of Exam:05/12/21 CHEST 1 VIEW, AP/PA ONLY EXAMINATION: Chest 1 view HISTORY: Sepsis. COMPARISON: 05/11/2021. FINDINGS: The lung volumes are normal. No focal consolidation is seen. No large pleural effusion or pneumothorax is seen. The cardiomediastinal silhouette is stable in size. There is calcified aortic atherosclerotic plaque. No acute osseous abnormality is seen. IMPRESSION: 1. Stable cardiomegaly. No overt pulmonary edema or focal consolidations. Dictated by: Dictated on workstation # [id number] Dict: 05/12/21 1417 Trans: 05/12/21 1432 [id number] [id number] Interpreted by: ROBERT DE LA TORRE DO Electronically signed by: ROBERT DE LA TORRE DO 05/12/21 1432 Diagonstic Imaging: CT Plain Films/CT/US/NM/MRI: chest Comments CT angiogram chest viewed by me and report reviewed. See report below: NAME: MALINA DUARTE [employer] REC#: [id number] PT STATUS: ADM IN : 1950 PHYSICIAN: JUNAID LAUGHLIN MD ADMIT DATE: 05/12/21 Signed Date of Exam:05/12/21 CT ANGIO CHEST W PROCEDURE: CT angiography of the chest with contrast. TECHNIQUE: Multiple contiguous axial images were obtained through the chest after uneventful bolus administration of intravenous contrast. 3D reconstructed CTA MIP acquisitions were also performed. Auto Exposure Controls were utilized during the CT exam to meet ALARA standards for radiation dose reduction. INDICATION: Hypoxia. Elevated D-dimer. COMPARISON: Chest radiograph performed earlier the same date. FINDINGS: This helical CT pulmonary angiogram is diagnostic to the segmental level branches of the pulmonary artery and demonstrates no pulmonary emboli. The heart and great vessels are unremarkable. There is no pericardial effusion. There is calcified aortic and coronary atherosclerotic plaque without aneurysm. There is no axillary, mediastinal or hilar adenopathy. Centrilobular emphysema is seen in the lungs, greatest in the apices. Consolidative opacities are seen in the right lung base. No discrete pulmonary mass. No central endobronchial obstructing lesions. No pleural effusion or pneumothorax. Osseous structures appear normal. Limited views of the upper abdomen are unremarkable. IMPRESSION: 1. No acute pulmonary embolus to the segmental pulmonary arteries. 2. Consolidative opacities in the right lung base concerning for pneumonia. 3. Centrilobular emphysema throughout the lungs. Dictated by: Dictated on workstation # [id number] Dict: 05/12/21 1620 Trans: 05/12/21 1630 [id number] Interpreted by: ROBERT DE LA TORRE DO Electronically signed by: ROBERT DE LA TORRE DO 05/12/21 1630 Departure Communication (Admissions) Time/Spoke to Admitting Phy: 14:57 Dr. Short Impression Primary Impression: SIRS (systemic inflammatory response syndrome) Additional Impressions: Hypoxia Hypokalemia Hypomagnesemia Person under investigation for COVID-19 Disposition: ADMITTED INPATIENT Condition: Improved Admissions Decision to Admit Reason: Admit from ER (General) Decision to Admit/Date: May 12, 2021 Time/Decision to Admit Time: 14:05 Departure-Patient Inst. Referrals: MELBA OCHOA DO (PCP/Family) Primary Care Physician Copy Copies To 1: MELBA OCHOA JOSHUA T MD May 12, 2021 14:58
[2021-05-12] MEDS ORDERED: POTASSIUM CL 10MEQ/50ML IVPB 50 ML IV ONE (15:00)
[2021-05-12] MEDS ORDERED: CEFEPIME INJECTION 2,000 MG in NS (IVPB) 50 ML IV ONE (15:15)
[2021-05-12 15:21] LABS: BILIRUBIN,URINE NEGATIVE (NEGATIVE); CLARITY,URINE CLEAR; COLOR,URINE YELLOW; GLUCOSE, URINE (UA) NEGATIVE (NEGATIVE); KETONES,URINE NEGATIVE (NEGATIVE); LEUKOCYTE ESTERASE ,URINE NEGATIVE (NEGATIVE); NITRITE,URINE NEGATIVE (NEGATIVE); PROTEIN,URINE NEGATIVE (NEGATIVE)
[2021-05-12 15:28] LABS: BACTERIA,URINE NEGATIVE /HPF; RBC,URINE RARE /HPF
[2021-05-12] MEDS ORDERED: NS IV 500 ML 500 ML IV ONE (15:30)
[2021-05-12] MEDS ORDERED: NS 100 ML (IVPB) BAG IV ONE (16:15)
[2021-05-12] MEDS ORDERED: HOLD METFORMIN - RECEIVED CONTRAST 20 ML VIAL IV SCH (16:15)
[2021-05-12] MEDS ORDERED: IOHEXOL 350 MG/ML 100 ML (OMNIPAQUE 350) VIAL IV ONE (16:15)
[2021-05-12] MEDS ORDERED: CATHETER FLUSH 10 ML SYR IV PRN (16:15)
[2021-05-12 16:26] VITALS: BP 130/72
--- NOTE | 2021-05-12 16:27 | Diagnostic Imaging Report ---
PROCEDURE: CT angiography of the chest with contrast. TECHNIQUE: Multiple contiguous axial images were obtained through the chest after uneventful bolus administration of intravenous contrast. 3D reconstructed CTA MIP acquisitions were also performed. Auto Exposure Controls were utilized during the CT exam to meet ALARA standards for radiation dose reduction. INDICATION: Hypoxia. Elevated D-dimer. COMPARISON: Chest radiograph performed earlier the same date. FINDINGS: This helical CT pulmonary angiogram is diagnostic to the segmental level branches of the pulmonary artery and demonstrates no pulmonary emboli. The heart and great vessels are unremarkable. There is no pericardial effusion. There is calcified aortic and coronary atherosclerotic plaque without aneurysm. There is no axillary, mediastinal or hilar adenopathy. Centrilobular emphysema is seen in the lungs, greatest in the apices. Consolidative opacities are seen in the right lung base. No discrete pulmonary mass. No central endobronchial obstructing lesions. No pleural effusion or pneumothorax. Osseous structures appear normal. Limited views of the upper abdomen are unremarkable. IMPRESSION: 1. No acute pulmonary embolus to the segmental pulmonary arteries. 2. Consolidative opacities in the right lung base concerning for pneumonia. 3. Centrilobular emphysema throughout the lungs. Dictated by: Dictated on workstation # [id number]
[2021-05-12] MEDS ORDERED: ONDANSETRON 4 MG/2 ML (SDV) Z0FRAN IVP PRN (17:30)
[2021-05-12] MEDS ORDERED: HYDR25TA4 PO (17:36)
[2021-05-12] MEDS ORDERED: HYDR-3924 PO (17:36)
[2021-05-12] MEDS ORDERED: CLOP75TA69 PO (17:36)
[2021-05-12] MEDS ORDERED: NS IV 1000 ML 1,000 ML ONE (17:47)
[2021-05-12] MEDS ORDERED: ACETAMINOPHEN 500 MG TAB (TYLENOL) ONE (17:48)
[2021-05-12] MEDS ORDERED: MAGNESIUM 1 GM/100 ML IVPB 300 ML IV ONE (17:48)
[2021-05-12] MEDS: ACETAMINOPHEN 500 MG TAB (TYLENOL) PO PRN (17:54)
[2021-05-12] MEDS: MAGNESIUM 1 GM/100 ML IVPB 100 ML IV SCH ×3 (17:54→23:02)
[2021-05-12] MEDS: NS IV 1000 ML 1,000 ML IV SCH (17:54)
[2021-05-12] MEDS ORDERED: KCL 20 MEQ TAB (K-DUR) PO ONE ×2 (18:00→23:59)
[2021-05-12] MEDS ORDERED: hydrALAZINE (APESOLINE) 20 MG/ML VIAL IV PRN (19:00)
[2021-05-12 19:36] VITALS: BP 120/67
[2021-05-12] MEDS: PANTOPRAZOLE 20 MG TABLET (PROTONIX) PO SCH (20:58)
[2021-05-12] MEDS: CEFEPIME 1,000 MG/NS 50 ML IVPB IV SCH ×2 (21:06)
--- NOTE | 2021-05-12 21:33 | History & Physical-Hospitalist ---
History of Present Illness HPI/Chief Complaint Alo Fischer is a 71 year old male with PMH HTN, CAD, GERD, who presented with fevers. He has also been having body aches. He reports diarrhea. He denies shortness of breath and cough. He denies chest pain. He denies nausea and vomiting. He denies abdominal pain. He denies dysuria. Source: patient Exam Limitations: no limitations Date Seen 05/12/21 Time Seen by a Provider: 18:25 Attending Physician Elie Birmingham MD PCP Rambo Espinoza DO Referring Physician Date of Admission May 12, 2021 at 15:07 Home Medications & Allergies Home Medications Reviewed patient Home Medication Reconciliation performed by pharmacy medication reconciliations quick service technician and/or nursing. Patients Allergies have been reviewed. Allergies Allergies Coded Allergies lisinopril (Verified Allergy, Severe, 05/12/21) FACIAL SWELLING adhesive tape (Verified Allergy, Mild, Rash, 05/12/21) Past Nlzcucf-Mmatku-Wqkzax Hx Patient Social History Tobacco Use?: No Smoking Status: Former Smoker Substance use?: No Alcohol Use?: Yes Alcohol type: Beer, Hard Liquor Alcohol Frequency: Once in a while Pt feels they are or have been: No Immunizations Up To Date Date of Influenza Vaccine: Mar 05, 2021 First/Initial COVID19 Vaccinat: May 2020 Second COVID19 Vaccination Al: Jun 2020 Tetanus Booster (TDap): More Than 5 Years Date of Pneumonia Vaccine: Nov 11, 2014 Current Status Advance Directives: No Communicates: Verbally Primary Language: French Preferred Spoken Language: French Implanted or Applied Medical D: Stents Past Medical History Surgeries: Coronary Stent Coronary Artery Disease, Heart Attack, Hypertension Family Medical History Hypertension 19 MOTHER G8 BROTHER Review of Systems Constitutional: fever, malaise EENTM: no symptoms reported Respiratory: no symptoms reported Cardiovascular: no symptoms reported Gastrointestinal: diarrhea Genitourinary: no symptoms reported Musculoskeletal: muscle pain Skin: no symptoms reported Psychiatric/Neurological: No Symptoms Reported Physical Exam Physical Exam Vital Signs Vital Signs - First Documented 05/12/21 13:18 Temp 38.9 Pulse 90 Resp 20 B/P (MAP) 125/92 (103) Pulse Ox 96 O2 Delivery Nasal Cannula O2 Flow Rate 2.00 Capillary Refill : Height, Weight, BMI Height: '" Weight: lbs. oz. kg; 30.06 BMI Method: General Appearance: No Apparent Distress, Obese HEENT: PERRL/EOMI, Pharynx Normal Neck: Normal Inspection, Supple Respiratory: Lungs Clear, No Respiratory Distress Cardiovascular: Regular Rate, Rhythm, No Murmur Gastrointestinal: Normal Bowel Sounds, Non Tender, Soft Extremity: Normal Inspection, Non Tender, No Pedal Edema Neurologic/Psychiatric: Alert, Oriented x3, No Motor/Sensory Deficits, Normal Mood/Affect Skin: Normal Color, Warm/Dry Results Results/Procedures Labs Laboratory Tests 05/12/21 13:20 05/13/21 09:20 Patient resulted labs reviewed. Imaging: Reviewed Imaging Films, Reviewed Imaging Report Assessment/Plan Admission Diagnosis Severe sepsis due to pneumonia Admission Status: Inpatient Order (span 2 midnights) Reason for Inpatient Admission: IV antibiotics Assessment and Plan Severe sepsis Pneumonia Acute respiratory failure with hypoxia CT with right lower lobe pneumonia Supplemental oxygen as needed Started on Cefepime IV fluids HTN CAD GERD Continue home meds Hold losartan and HCTZ DVT prophylaxis: Lovenox Diagnosis/Problems Diagnosis/Problems (1) Severe sepsis Status: Acute (2) RLL pneumonia Status: Acute (3) Acute respiratory failure with hypoxia Status: Acute (4) HTN (hypertension) Status: Chronic (5) CAD (coronary artery disease) Status: Chronic (6) GERD (gastroesophageal reflux disease) Status: Chronic (7) Obesity Status: Chronic ELIE BIRMINGHAM MD May 12, 2021 21:33
[2021-05-12] MEDS: IBUPROFEN 600 MG (MOTRIN) TAB PO PRN (23:02)
[2021-05-13 00:18] VITALS: BP 118/69
[2021-05-13] MEDS: ACETAMINOPHEN 500 MG TAB (TYLENOL) PO PRN ×3 (02:10→20:34)
[2021-05-13] MEDS: CEFEPIME 1,000 MG/NS 50 ML IVPB IV SCH ×4 (02:10→08:39)
[2021-05-13] MEDS ORDERED: CEFEPIME INJECTION 2,000 MG in NS (IVPB) 50 ML IV SCH (03:00)
[2021-05-13 03:36] VITALS: BP 113/69
[2021-05-13] MEDS: NS IV 1000 ML 1,000 ML IV SCH ×4 (05:12→15:45)
[2021-05-13] MEDS: PANTOPRAZOLE 20 MG TABLET (PROTONIX) PO SCH ×2 (05:13→15:45)
[2021-05-13] MEDS: IBUPROFEN 600 MG (MOTRIN) TAB PO PRN ×3 (05:14→22:54)
[2021-05-13] MEDS ORDERED: KCL 20 MEQ TAB (K-DUR) PO ONE (06:00)
[2021-05-13 07:57] VITALS: BP 109/71
[2021-05-13] MEDS: ASPIRIN 81 MG CHEW (CHILDREN'S ASA) PO SCH (08:38)
[2021-05-13] MEDS: CLOPIDOGREL 75 MG (PLAVIX) TABLET PO SCH (08:38)
[2021-05-13] MEDS: amLODIPine 10 MG (NORVASC) TAB PO SCH (08:38)
[2021-05-13] MEDS: ATENOLOL 25 MG (TENORMIN) TAB PO SCH (08:39)
[2021-05-13] MEDS ORDERED: PIPERACILLIN SODIUM/TAZOBACTAM 4.5 GM in NS (IVPB) 100 ML IV ONE (09:00)
[2021-05-13] MEDS ORDERED: PIPERACILLIN SODIUM/TAZOBACTAM 4.5 GM in NS (IVPB) 100 ML IV SCH (09:00)
[2021-05-13 09:37] LABS: BASOPHILS % (AUTO) 0 % (0-10); HEMATOCRIT 40 % (40-54)
[2021-05-13 09:39] LABS: EOSINOPHILS # (AUTO) 0.1 10^3/uL (0.0-0.3); EOSINOPHILS % (AUTO) 1 % (0-10); HEMOGLOBIN 13.2 g/dL (13.3-17.7); LYMPHOCYTES # (AUTO) 0.5 10^3/uL (1.0-4.0); LYMPHOCYTES % (AUTO) 4 % (12-44); MEAN CORPUSCULAR HEMOGLOBIN 29 pg (25-34); MEAN CORPUSCULAR HGB CONC 33 g/dL (32-36); MEAN CORPUSCULAR VOLUME 86 fL (80-99); MEAN PLATELET VOLUME 11.3 fL (9.0-12.2); MONOCYTES # (AUTO) 0.7 10^3/uL (0.0-1.0); MONOCYTES % (AUTO) 7 % (0-12); NEUTROPHILS # (AUTO) 9.7 10^3/uL (1.8-7.8); NEUTROPHILS % (AUTO) 88 % (42-75)
[2021-05-13 09:54] LABS: ALBUMIN 3.1 GM/DL (3.2-4.5)
[2021-05-13 09:55] LABS: POTASSIUM 3.5 MMOL/L (3.6-5.0)
[2021-05-13 09:56] LABS: CALCIUM 8.4 MG/DL (8.5-10.1)
[2021-05-13 09:57] LABS: TOTAL PROTEIN 6.1 GM/DL (6.4-8.2)
[2021-05-13 09:59] LABS: BILIRUBIN,TOTAL 1.3 MG/DL (0.1-1.0)
[2021-05-13 10:01] LABS: CREATININE SERUM 0.79 MG/DL (0.60-1.30)
[2021-05-13 10:03] LABS: MAGNESIUM 1.8 MG/DL (1.6-2.4)
[2021-05-13 10:07] LABS: PLATELET COUNT 64 10^3/uL (130-400)
[2021-05-13 10:19] LABS: ERYTHROCYTE SEDIMENTATION RATE 47 MM/HR (0-30)
[2021-05-13 11:17] VITALS: BP 90/52
[2021-05-13] MEDS: PIPERACILLIN SODIUM/TAZOBACTAM 4.5 GM in NS (IVPB) 100 ML IV SCH ×2 (15:45→22:54)
[2021-05-13 17:00] VITALS: BP 114/71
[2021-05-13] MEDS ORDERED: polyethylene glycoL POWDER 17 GM (MIRALAX) PACK PO PRN (18:15)
[2021-05-13] MEDS ORDERED: ANTACID SUSP 30 ML UDC (MYLANTA) PO PRN (18:15)
[2021-05-13] MEDS ORDERED: LOPERAMIDE 2 MG (IMODIUM) TABLET PO PRN (18:15)
[2021-05-13] MEDS ORDERED: MELATONIN 3 MG TABLET PO PRN (18:15)
[2021-05-13] MEDS ORDERED: ONDANSETRON 4 MG (ZOFRAN) ORAL DISSOLVE TAB PO PRN (18:15)
[2021-05-13] MEDS ORDERED: ONDANSETRON 4 MG/2 ML (SDV) Z0FRAN IV PRN (18:15)
[2021-05-13] MEDS ORDERED: diphenhydrAMINE 25 MG TAB (BENADRYL) PO PRN (18:15)
--- NOTE | 2021-05-13 18:15 | Progress Note - Hospitalist ---
Subjective HPI/CC On Admission Date Seen by Provider: May 13, 2021 Time Seen by Provider: 12:15 Alo Fischer is a 71 year old male with PMH HTN, CAD, GERD, who presented with fevers. He has also been having body aches. He reports diarrhea. He denies shortness of breath and cough. He denies chest pain. He denies nausea and vomiting. He denies abdominal pain. He denies dysuria. Subjective/Events-last exam He is feeling better today. His body aches are better. He had fevers overnight and felt miserable. He is not short of breath and denies cough. Focused Exam Lactate Level 05/12/21 13:20: Lactic Acid Level 1.35 Objective Exam Vital Signs Vital Signs Date Time Temp Pulse Resp B/P (MAP) Pulse Ox O2 Delivery O2 Flow Rate FiO2 05/13/21 17:00 36.5 66 18 114/71 (85) 94 Nasal Cannula 3.00 Capillary Refill : General Appearance: No Apparent Distress, Obese Respiratory: Lungs Clear, No Respiratory Distress Cardiovascular: Regular Rate, Rhythm, No Murmur Gastrointestinal: Normal Bowel Sounds, Soft Extremity: Normal Inspection, No Pedal Edema Neurologic/Psychiatric: Alert, No Motor/Sensory Deficits Skin: Normal Color, Warm/Dry Results/Procedures Lab Laboratory Tests 05/13/21 09:20 Patient resulted labs reviewed. Imaging: Reviewed Imaging Films, Reviewed Imaging Report Assessment/Plan Assessment and Plan Assess & Plan/Chief Complaint Severe sepsis Pneumonia Acute respiratory failure with hypoxia CT with right lower lobe pneumonia Supplemental oxygen as needed Decrease fluids Transition to Zosyn HTN CAD GERD Continue home meds Hold losartan and HCTZ DVT prophylaxis: Lovenox Diagnosis/Problems Diagnosis/Problems (1) Severe sepsis Status: Acute (2) RLL pneumonia Status: Acute (3) Acute respiratory failure with hypoxia Status: Acute (4) HTN (hypertension) Status: Chronic (5) CAD (coronary artery disease) Status: Chronic (6) GERD (gastroesophageal reflux disease) Status: Chronic (7) Obesity Status: Chronic ELIE BIRMINGHAM MD May 13, 2021 18:15
[2021-05-13] MEDS ORDERED: ENOXAPARIN 40 MG/0.4 ML (LOVENOX) SYR ONE (18:30)
[2021-05-13] MEDS: ENOXAPARIN 40 MG/0.4 ML (LOVENOX) SYR SC SCH (18:41)
[2021-05-13 19:34] VITALS: BP 144/79
[2021-05-14] VITALS (7 sets, daily range): BP systolic 103–135; BP diastolic 66–76
[2021-05-14] MEDS: ACETAMINOPHEN 500 MG TAB (TYLENOL) PO PRN ×2 (06:04→16:39)
[2021-05-14] MEDS: PIPERACILLIN SODIUM/TAZOBACTAM 4.5 GM in NS (IVPB) 100 ML IV SCH ×2 (06:04→14:57)
[2021-05-14] MEDS: PANTOPRAZOLE 20 MG TABLET (PROTONIX) PO SCH ×2 (06:04→16:39)
[2021-05-14] MEDS: NS IV 1000 ML 1,000 ML IV SCH (06:04)
[2021-05-14 07:00] LABS: BASOPHILS % (AUTO) 0 % (0-10); EOSINOPHILS % (AUTO) 1 % (0-10)
[2021-05-14 07:03] LABS: EOSINOPHILS # (AUTO) 0.1 10^3/uL (0.0-0.3); HEMATOCRIT 34 % (40-54); HEMOGLOBIN 11.5 g/dL (13.3-17.7); LYMPHOCYTES # (AUTO) 0.6 10^3/uL (1.0-4.0); LYMPHOCYTES % (AUTO) 7 % (12-44); MEAN CORPUSCULAR HEMOGLOBIN 28 pg (25-34); MEAN CORPUSCULAR HGB CONC 33 g/dL (32-36); MEAN CORPUSCULAR VOLUME 85 fL (80-99); MONOCYTES # (AUTO) 0.9 10^3/uL (0.0-1.0); MONOCYTES % (AUTO) 9 % (0-12); NEUTROPHILS # (AUTO) 7.8 10^3/uL (1.8-7.8); NEUTROPHILS % (AUTO) 82 % (42-75); PLATELET COUNT 61 10^3/uL (130-400); WHITE BLOOD COUNT 9.5 10^3/uL (4.3-11.0)
[2021-05-14 07:12] LABS: POTASSIUM 3.2 MMOL/L (3.6-5.0)
[2021-05-14 07:13] LABS: CALCIUM 7.9 MG/DL (8.5-10.1)
[2021-05-14 07:17] LABS: CREATININE SERUM 0.8 MG/DL (0.60-1.30)
[2021-05-14] MEDS: IBUPROFEN 600 MG (MOTRIN) TAB PO PRN ×2 (08:15→20:45)
[2021-05-14] MEDS: CLOPIDOGREL 75 MG (PLAVIX) TABLET PO SCH (08:15)
[2021-05-14] MEDS: ATENOLOL 25 MG (TENORMIN) TAB PO SCH (08:15)
[2021-05-14] MEDS: amLODIPine 10 MG (NORVASC) TAB PO SCH (08:15)
[2021-05-14] MEDS: ASPIRIN 81 MG CHEW (CHILDREN'S ASA) PO SCH (08:15)
--- NOTE | 2021-05-14 08:22 | Consultation-Cardiology ---
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 Ponce with [facility] in [place], [place] HPI: Chief Complaint: Chest pain Mr. Houston is a 71 yr old male admitted to 432 from the ED. He reports he recently returned from a trip to [place], [place]. He reports they returned home on Friday at which time he began to feel weak, tired, body aches. He states he developed a fever on night as high as 99.9. He continued to feel weak. He reports on Friday his temp was 103. He went to the ED to be evaluated and was found to be hypokalemic. He reports he was tested for COVID and it was negative. He states he was given potassium and sent home. He states he continued to feel weak with fever which he could not control at home. He states he came back to the ED and his oxygen sats were in the 80's. He denies any n/v/d. He reports last night he had two episodes of sharp, stabbing chest pains lasting only seconds overnight. No radiation. No assoc symptoms. He reports he has developed a cough this morning. He reports he had two episodes of chest pain lasting a few seconds this morning, again without radiation, but he felt the episodes lasted a few seconds longer than last night. He does report discomfort with palpation of the left ACW. No c/o LE swelling. He follows with Dr. Ponce of [facility] and did see him less than 6 months ago. Review of Systems-Cardiology Review of Systems Constitutional: chills, fever, malaise Eyes: No vision change Ears/Nose/Throat: No epistaxis, No recent hearing loss Respiratory: As described under HPI Cardiovascular: As described under HPI Gastrointestinal: As described under HPI Genitourinary: No dysuria, No hematuria Musculoskeletal: no symptoms reported Skin: No rash on exposed areas, No ulcerations on exposed areas Psychiatric/Neurological: No focal weakness, No syncope Hematologic: No bleeding abnormalities FXY-Fsumkb-Ltcnaj Hx Patient Social History Smoking Status: Former Smoker Have you traveled recently?: Yes Where was recent travel?: [place] Alcohol Use?: Yes Pt feels they are or have been: No Immunizations Up To Date Date of Pneumonia Vaccine: Nov 11, 2014 Date of Influenza Vaccine: Mar 05, 2021 Past Medical History PMH As described under Assessment. Family Medical History Family Medical History: He reports his mother and a brother have HTN. No reported family h/o CAD. Family History: Hypertension 19 MOTHER G8 BROTHER Allergies and Home Medications Allergies Coded Allergies: lisinopril (Verified Allergy, Severe, 05/12/21) FACIAL SWELLING adhesive tape (Verified Allergy, Mild, Rash, 05/12/21) Patient Home Medication List Acetaminophen (Tylenol) 325 Mg Tablet, 650 MG PO Q6H PRN for PAIN-MILD (1-4), (Reported) Entered as Reported by: FARHEEN CHILEL on 05/14/211241 Last Action: Reviewed Amlodipine Besylate (Amlodipine Besylate) 10 Mg Tablet, 10 MG PO DAILY, (Reported) Entered as Reported by: WEI CASTLE on 11/25/191235 Last Action: Reviewed Aspirin (Aspirin) 81 Mg Tab.chew, 81 MG PO DAILY, (Reported) Entered as Reported by: FARHEEN CHILEL on 05/14/211241 Last Action: Reviewed Atenolol (Atenolol) 25 Mg Tablet, 25 MG PO DAILY, (Reported) Entered as Reported by: WEI CASTLE on 11/25/191235 Last Action: Reviewed Atorvastatin Calcium (Atorvastatin Calcium) 40 Mg Tablet, 40 MG PO 2030, (Reported) Entered as Reported by: FARHEEN CHILEL on 05/14/211241 Last Action: Reviewed Clopidogrel Bisulfate (Plavix) 75 Mg Tablet, 75 MG PO 2030, (Reported) Entered as Reported by: JULIO SCHROEDER on 05/12/211735 Last Action: Reviewed Diphenhydramine HCl (Benadryl) 25 Mg Capsule, 25-50 MG PO Q6H PRN for ALLERGY SYMPTOMS, (Reported) Entered as Reported by: WEI CASTLE on 11/25/191235 Last Action: Reviewed Hydralazine HCl (Hydralazine HCl) 50 Mg Tablet, 50 MG PO BID, (Reported) Entered as Reported by: JULIO SCHROEDER on 05/12/211735 Last Action: Reviewed Hydrochlorothiazide (Hydrochlorothiazide) 25 Mg Tablet, 25 MG PO DAILY, (Reported) Entered as Reported by: JULIO SCHROEDER on 05/12/21 1736 Last Action: Reviewed Losartan Potassium (Losartan Potassium) 100 Mg Tablet, 100 MG PO DAILY, (Reported) Entered as Reported by: WEI CASTLE on 11/25/19 1236 Last Action: Reviewed Multivitamin (Multivitamin) 1 Each Tablet, 1 EACH PO DAILY, (Reported) Entered as Reported by: WEI CASTLE on 11/25/19 123 Last Action: Reviewed Naphazoline HCl/Pheniramine (Eye Allergy Relief Drops) 15 Ml Drops, 1 DROP OU DAILY PRN for ALLERGIES, (Reported) Entered as Reported by: FARHEEN CHILEL on 05/14/21 1242 Last Action: Reviewed Omeprazole (Omeprazole) 20 Mg Capsule.dr, 20 MG PO BID, (Reported) Entered as Reported by: WEI CASTLE on 11/25/19 123 Last Action: Reviewed Discontinued Medications Aspirin (Aspirin) 81 Mg Tab.chew, 81 MG PO DAILY Discontinued Reason: Duplicate Order Prescribed by: JOSE NAVARRO on 11/28/191254 Last Action: Discontinued Atorvastatin Calcium (Lipitor) 40 Mg Tablet, 40 MG PO HS Discontinued Reason: Duplicate Order Prescribed by: JOSE NAVARRO on 11/28/191254 Last Action: Discontinued Nirmatrelvir/Ritonavir (Paxlovid Co-Pack (Eua)) 1 Each Tablet, 1 EACH PO UD Discontinued Reason: No Longer Taking Prescribed by: TOMY FRANK on 05/11/212253 Last Action: Discontinued Ondansetron (Ondansetron Odt) 4 Mg Tab.rapdis, 4 MG PO Q8H PRN for nausea Discontinued Reason: No Longer Taking Prescribed by: TOMY FRANK on 05/11/212219 Last Action: Discontinued Potassium Chloride (K-Tab ER) 20 Meq Tablet.er, 20 MEQ PO DAILY Discontinued Reason: No Longer Taking Prescribed by: TOMY FRANK on 05/11/212246 Last Action: Discontinued Ticagrelor (Brilinta) 90 Mg Tablet, 90 MG PO BID Discontinued Reason: No Longer Taking Prescribed by: JOSE NAVARRO on 11/28/191254 Last Action: Discontinued Physical Exam-Cardiology Physical Exam Vital Signs/I&O 05/14/21 05/15/21 05/15/21 05/15/21 23:56 00:38 01:00 04:38 Temp 37.0 37.0 37.4 Pulse 78 71 Resp 18 B/P (MAP) 135/73 (93) Pulse Ox 93 O2 Delivery Nasal Cannula O2 Flow Rate 3.00 05/15/21 05/15/21 05/15/21 05/15/21 04:38 07:00 08:00 09:50 Temp 37.4 36.7 Pulse 69 70 72 Resp 16 18 B/P (MAP) 133/65 (87) 129/84 (99) Pulse Ox 94 92 O2 Delivery Nasal Cannula Nasal Cannula Nasal Cannula O2 Flow Rate 3.00 3.00 3.00 05/15/21 00:00 Intake Total 6550 ml Output Total 1601 ml Balance 4949 ml Capillary Refill : Constitutional: AAO x 3, well-developed, well-nourished HEENT: PERRL, hearing is well preserved, oral hygience is good Neck: No carotid bruit; carotid pulses are 2 + bilaterally Respiratory: No accessory muscle use, No respiratory distress; chest expansion is symmetric, chest is bilaterally symmetric, lungs clear to auscultation Cardiovascular: regular rate-rhythm; No JVD; S1 and S2 Gastrointestinal: No tender; soft, audible bowel sounds Extremities: no lower extremity edema bilateral Neurologic/Psychiatric: grossly intact (moves all extremities) Skin: No rash on exposed areas, No ulcerations on exposed areas Data Review Labs Laboratory Tests 05/15/21 06:06: White Blood Count 8.7, Red Blood Count 3.77L, Hemoglobin 10.7L, Hematocrit 32L, Mean Corpuscular Volume 85, Mean Corpuscular Hemoglobin 28, Mean Corpuscular Hemoglobin Concent 33, Red Cell Distribution Width 12.8, Platelet Count 70L, Mean Platelet Volume 11.1, Immature Granulocyte % (Auto) 1, Neutrophils (%) (Auto) 74, Lymphocytes (%) (Auto) 9L, Monocytes (%) (Auto) 12, Eosinophils (%) (Auto) 4, Basophils (%) (Auto) 1, Neutrophils # (Auto) 6.5, Lymphocytes # (Auto) 0.8L, Monocytes # (Auto) 1.0, Eosinophils # (Auto) 0.3, Basophils # (Auto) 0.1, Immature Granulocyte # (Auto) 0.1, Percent Immature Platelet Fraction 5.7, Sodium Level 137, Potassium Level 3.6, Chloride Level 106, Carbon Dioxide Level 21, Anion Gap 10, Blood Urea Nitrogen 10, Creatinine 0.75, Estimat Glomerular Fi ltration Rate 96, BUN/Creatinine Ratio 13, Glucose Level 93, Calcium Level 7.9L, Corrected Calcium 8.9, Total Bilirubin 0.7, Aspartate Amino Transf (AST/SGOT) 42H, Alanine Aminotransferase (ALT/SGPT) 30, Alkaline Phosphatase 145H, Total Protein 5.6L, Albumin 2.8L Microbiology 05/12/21 Urine Culture - Final, Complete NO GROWTH 05/12/21 Blood Culture - Preliminary, Resulted No growth Radiology NAME: MALINA DUARTE [facility] REC#: [id number] PT STATUS: REG ER : 1950 PHYSICIAN: JUNAID LAUGHLIN MD ADMIT DATE: 05/12/21/ER Signed Date of Exam:05/12/21 CHEST 1 VIEW, AP/PA ONLY EXAMINATION: Chest 1 view HISTORY: Sepsis. COMPARISON: 05/11/2021. FINDINGS: The lung volumes are normal. No focal consolidation is seen. No large pleural effusion or pneumothorax is seen. The cardiomediastinal silhouette is stable in size. There is calcified aortic atherosclerotic plaque. No acute osseous abnormality is seen. IMPRESSION: 1. Stable cardiomegaly. No overt pulmonary edema or focal consolidations. Dictated by: Dictated on workstation # [id number] Dict: 05/12/21 1417 Trans: 05/12/21 1432 [facility] [id number] Interpreted by: ROBERT DE LA TORRE DO Electronically signed by: ROBERT DE LA TORRE DO 05/12/21 1432 NAME: MALINA DUARTE MED REC#: [id number] PT STATUS: ADM IN : 1950 PHYSICIAN: JUNAID LAUGHLIN MD ADMIT DATE: 05/12/21/4TH Signed Date of Exam:05/12/21 CT ANGIO CHEST W PROCEDURE: CT angiography of the chest with contrast. TECHNIQUE: Multiple contiguous axial images were obtained through the chest after uneventful bolus administration of intravenous contrast. 3D reconstructed CTA MIP acquisitions were also performed. Auto Exposure Controls were utilized during the CT exam to meet ALARA standards for radiation dose reduction. INDICATION: Hypoxia. Elevated D-dimer. COMPARISON: Chest radiograph performed earlier the same date. FINDINGS: This helical CT pulmonary angiogram is diagnostic to the segmental level branches of the pulmonary artery and demonstrates no pulmonary emboli. The heart and great vessels are unremarkable. There is no pericardial effusion. There is calcified aortic and coronary atherosclerotic plaque without aneurysm. There is no axillary, mediastinal or hilar adenopathy. Centrilobular emphysema is seen in the lungs, greatest in the apices. Consolidative opacities are seen in the right lung base. No discrete pulmonary mass. No central endobronchial obstructing lesions. No pleural effusion or pneumothorax. Osseous structures appear normal. Limited views of the upper abdomen are unremarkable. IMPRESSION: 1. No acute pulmonary embolus to the segmental pulmonary arteries. 2. Consolidative opacities in the right lung base concerning for pneumonia. 3. Centrilobular emphysema throughout the lungs. Dictated by: Dictated on workstation # [id number] Dict: 05/12/21 1620 Trans: 05/12/21 1630 [facility] [id number] Interpreted by: ROBERT DE LA TORRE DO Electronically signed by: ROBERT DE LA TORRE DO 05/12/21 1630 ECG Impression ECG Initial ECG Rhythm: Normal Sinus A/P-Cardiology Assessment/Admission Diagnosis Chest pain of undetermined etiology - no evidence of ACS thus far Pneumonia - management per medical services Multivessel CAD - Card cath on 11/25/19: LMCA ok; RCA dominant with mild diffuse disease; LAD 95% mid, treated with DONTRELL; LCX 99% mid, treated with DONTRELL; OM1 80% prox, treated with DONTRELL - Echo of 11/25/19: Mild conc LVH, LVEF 55-65%, grade 1 diastolic dysfunction, PASP 20 mm Hg to 25 mm Hg - Continue ASA and Plavix Hypertension - controlled Electrolyte abnormalities - likely secondary to vol loss d/t diarrhea and chronic diuretic use - replace H/O tobaccoism - quit smoking greater than 10 yrs ago Discussion and Recomendations Chest pain of undetermined etiology - no evidence of ACS thus far - Echocardiogram today to eval structure and function Pneumonia - mangement per medical services Electrolyte abnormalities - reasons noted above - stop HCTZ and replace electrolytes - monitor lab closely Further recs will be based on his hospital course We would like to thank medical services for this consult MANDA GARCIA May 14, 2021 08:22
[2021-05-14] MEDS ORDERED: KCL 20 MEQ TAB (K-DUR) PO ONE ×2 (09:15→12:00)
[2021-05-14] MEDS ORDERED: MAGNESIUM 1 GM/100 ML IVPB 100 ML IV ONE (09:15)
--- NOTE | 2021-05-14 11:19 | Consultation-Cardiology ---
HPI-Cardiology Cardiology Consultation: Date of Consultation 05/14/21 Time Seen by a Provider: 09:10 Date of Admission Attending Physician Ladonna Guy DO Admitting Physician Rambo Espinoza DO Consulting Physician YULIET ULLOA MD, MA, FACP, FACC, [facility], CCDS HPI: Chief Complaint: Chest pain Mr. Houston is a 71 yr old male admitted to [facility] from the ED. He reports he recently returned from a trip to [place], [place]. He reports they returned home on Friday at which time he began to feel weak, tired, body aches. He states he developed a fever on night as high as 99.9. He continued to feel weak. He reports on Friday his temp was 103. He went to the ED to be evaluated and was found to be hypokalemic. He reports he was tested for COVID and it was negative. He states he was given potassium and sent home. He states he continued to feel weak with fever which he could not control at home. He states he came back to the ED and his oxygen sats were in the 80's. He denies any n/v/d. He reports last night he had two episodes of sharp, stabbing chest pains lasting only seconds overnight. No radiation. No assoc symptoms. He reports he has developed a cough this morning. He reports he had two episodes of chest pain lasting a few seconds this morning, again without radiation, but he felt the episodes lasted a few seconds longer than last night. He does report discomfort with palpation of the left ACW. No c/o LE swelling. He follows with Dr. Ponce of [facility] and did see him less than 6 months ago. Review of Systems-Cardiology Review of Systems Constitutional: chills, fever, malaise Eyes: No vision change Ears/Nose/Throat: No epistaxis, No recent hearing loss Respiratory: As described under HPI Cardiovascular: As described under HPI Gastrointestinal: As described under HPI Genitourinary: No dysuria, No hematuria Musculoskeletal: no symptoms reported Skin: No rash on exposed areas, No ulcerations on exposed areas Psychiatric/Neurological: No focal weakness, No syncope Hematologic: No bleeding abnormalities HTF-Fveylg-Fhczlx Hx Patient Social History Smoking Status: Former Smoker Have you traveled recently?: Yes Where was recent travel?: [place] Alcohol Use?: Yes Pt feels they are or have been: No Immunizations Up To Date Date of Pneumonia Vaccine: Nov 11, 2014 Date of Influenza Vaccine: Mar 05, 2021 Past Medical History PMH As described under Assessment. Family Medical History Family Medical History: He reports his mother and a brother have HTN. No reported family h/o CAD. Family History: Hypertension 19 MOTHER G8 BROTHER Allergies and Home Medications Allergies Coded Allergies: lisinopril (Verified Allergy, Severe, 05/12/21) FACIAL SWELLING adhesive tape (Verified Allergy, Mild, Rash, 05/12/21) Patient Home Medication List Home Medication List Reviewed: Yes Amlodipine Besylate (Amlodipine Besylate) 10 Mg Tablet, 10 MG PO DAILY, (Reported) Entered as Reported by: WIE CASTLE on 11/25/191235 Last Action: Continued Aspirin (Aspirin) 81 Mg Tab.chew, 81 MG PO DAILY Prescribed by: YULIET ULLOA on 11/28/191254 Last Action: Continued Atenolol (Atenolol) 25 Mg Tablet, 25 MG PO DAILY, (Reported) Entered as Reported by: WEI CASTLE on 11/25/191235 Last Action: Continued Atorvastatin Calcium (Lipitor) 40 Mg Tablet, 40 MG PO HS Prescribed by: YULIET ULLOA on 11/28/191254 Last Action: Held Clopidogrel Bisulfate (Plavix) 75 Mg Tablet, 75 MG PO HS, (Reported) Entered as Reported by: JULIO SCHROEDER on 05/12/211735 Last Action: Held Diphenhydramine HCl (Benadryl) 25 Mg Capsule, 25-50 MG PO Q6H PRN for ALLERGY SYMPTOMS, (Reported) Entered as Reported by: WEI CASTLE on 11/25/191235 Last Action: Held Hydralazine HCl (Hydralazine HCl) 50 Mg Tablet, 50 MG PO BID, (Reported) Entered as Reported by: JULOI SCHROEDER on 05/12/211735 Last Action: Held Hydrochlorothiazide (Hydrochlorothiazide) 25 Mg Tablet, 25 MG PO DAILY, (Reported) Entered as Reported by: JULIO SCHROEDER on 05/12/211735 Last Action: Held Losartan Potassium (Losartan Potassium) 100 Mg Tablet, 100 MG PO DAILY, (Reported) Entered as Reported by: WEI CASTLE on 8/20/20 1236 Last Action: Held Multivitamin (Multivitamin) 1 Each Tablet, 1 EACH PO DAILY, (Reported) Entered as Reported by: WEI CASTLE on 11/25/19 1236 Last Action: Held Omeprazole (Omeprazole) 20 Mg Capsule.dr, 20 MG PO BID, (Reported) Entered as Reported by: WEI CASTLE on 11/25/19 1236 Last Action: Continued Ticagrelor (Brilinta) 90 Mg Tablet, 90 MG PO BID Prescribed by: YULIET ULLOA on 11/28/19 1255 Last Action: Held Discontinued Medications Nirmatrelvir/Ritonavir (Paxlovid Co-Pack (Eua)) 1 Each Tablet, 1 EACH PO UD Discontinued Reason: No Longer Taking Prescribed by: TOMY FRANK on 05/11/212253 Last Action: Discontinued Ondansetron (Ondansetron Odt) 4 Mg Tab.rapdis, 4 MG PO Q8H PRN for nausea Discontinued Reason: No Longer Taking Prescribed by: TOMY FRANK on 05/11/212219 Last Action: Discontinued Potassium Chloride (K-Tab ER) 20 Meq Tablet.er, 20 MEQ PO DAILY Discontinued Reason: No Longer Taking Prescribed by: TOMY FRANK on 05/11/212246 Last Action: Discontinued Physical Exam-Cardiology Physical Exam Vital Signs/I&O 05/14/21 05/14/21 05/14/21 05/14/21 00:26 01:00 03:01 06:04 Temp 37.6 37.5 37.8 Pulse 72 71 69 Resp 20 18 B/P (MAP) 108/68 (81) 107/66 (80) Pulse Ox 90 92 O2 Delivery Nasal Cannula Nasal Cannula O2 Flow Rate 3.00 3.00 05/14/21 05/14/21 05/14/21 06:34 07:00 08:01 Temp 37.6 37.0 Pulse 79 78 Resp 18 B/P (MAP) 129/76 (93) Pulse Ox 90 O2 Delivery Nasal Cannula O2 Flow Rate 3.00 05/14/21 00:00 Intake Total 2105 ml Output Total 800 ml Balance 1305 ml Capillary Refill : Constitutional: AAO x 3, well-developed, well-nourished HEENT: PERRL, hearing is well preserved, oral hygience is good Neck: No carotid bruit; carotid pulses are 2 + bilaterally Respiratory: No accessory muscle use, No respiratory distress; chest expansion is symmetric, chest is bilaterally symmetric, lungs clear to auscultation Cardiovascular: regular rate-rhythm; No JVD; S1 and S2 Gastrointestinal: No tender; soft, audible bowel sounds Extremities: no lower extremity edema bilateral Neurologic/Psychiatric: grossly intact (moves all extremities) Skin: No rash on exposed areas, No ulcerations on exposed areas Data Review Labs Laboratory Tests 05/14/21 06:46: White Blood Count 9.5, Red Blood Count 4.07L, Hemoglobin 11.5L, Hematocrit 34L, Mean Corpuscular Volume 85, Mean Corpuscular Hemoglobin 28, Mean Corpuscular Hemoglobin Concent 33, Red Cell Distribution Width 12.3, Platelet Count 61L, Mean Platelet Volume 11.0, Immature Granulocyte % (Auto) 1, Neutrophils (%) (Auto) 82H, Lymphocytes (%) (Auto) 7L, Monocytes (%) (Auto) 9, Eosinophils (%) (Auto) 1, Basophils (%) (Auto) 0, Neutrophils # (Auto) 7.8, Lymphocytes # (Auto) 0.6L, Monocytes # (Auto) 0.9, Eosinophils # (Auto) 0.1, Basophils # (Auto) 0.0, Immature Granulocyte # (Auto) 0.1, Percent Immature Platelet Fraction 8.0H, Sodium Level 134L, Potassium Level 3.2L, Chloride Level 104, Carbon Dioxide Level 19L, Anion Gap 11, Blood Urea Nitrogen 12, Creatinine 0.80, Estimat Glomerular Filtration Rate 95, BUN/Creatinine Ratio 15, Glucose Level 104, Calcium Level 7.9L, Troponin I < 0.028 Microbiology 05/12/21 Urine Culture - Final, Complete NO GROWTH 05/12/21 Blood Culture - Preliminary, Resulted No growth A/P-Cardiology Assessment/Admission Diagnosis Chest pain of undetermined etiology, probably musculoskeletal (reproducible on physical exam) - no evidence of ACS thus far Pneumonia - management per medical services Multivessel CAD - Card cath on 11/25/19: LMCA ok; RCA dominant with mild diffuse disease; LAD 95% mid, treated with DONTRELL; LCX 99% mid, treated with DONTRELL; OM1 80% prox, treated with DONTRELL - Echo of 11/25/19: Mild conc LVH, LVEF 55-65%, grade 1 diastolic dysfunction, PASP 20 mm Hg to 25 mm Hg - Continue ASA and Plavix Hypertension - controlled Electrolyte abnormalities - likely secondary to vol loss d/t diarrhea and chronic diuretic use - replace H/O tobaccoism - quit smoking greater than 10 yrs ago Discussion and Recomendations Chest pain of undetermined etiology - no evidence of ACS thus far - Echocardiogram today to eval structure and function Pneumonia - mangement per medical services Electrolyte abnormalities - reasons noted above - stop HCTZ and replace electrolytes - monitor lab closely Further recs will be based on his hospital course We would like to thank Medical services for this consult YULIET ULLOA MD FACP FACC CCDS May 14, 2021 11:19
--- NOTE | 2021-05-14 12:20 | Progress Note - Hospitalist ---
ELVIA PALMER 05/14/21 1220: Subjective HPI/CC On Admission Date Seen by Provider: May 14, 2021 Time Seen by Provider: 09:00 Alo Fischer is a 71 year old male with PMH HTN, CAD, GERD, who presented with fevers. He has also been having body aches. He reports diarrhea. He denies shortness of breath and cough. He denies chest pain. He denies nausea and vomiting. He denies abdominal pain. He denies dysuria. Subjective/Events-last exam Patient doing well this morning. Complained of left-sided chest pain late last night and into the morning. Cardiology consulted and obtaining an echocardiogram this morning. Patient denies arm pain, jaw pain, or epigastric pain. Review of Systems General: No Chills, No Night Sweats; Other (subjective fevers) HEENT: No Head Aches, No Visual Changes, No Eye Pain Pulmonary: No Dyspnea, No Cough Cardiovascular: Chest Pain (left-sided, one inch inferior to niplle, dull, no radiation); No: Palpitations Gastrointestinal: Diarrhea; No: Nausea, Vomiting Genitourinary: No Dysuria, No Frequency Musculoskeletal: No: leg pain, foot pain Neurological: No: Weakness, Numbness Focused Exam Sepsis Stage: Severe Sepsis Possible Source: Pulmonary Lactate Level 05/12/21 13:20: Lactic Acid Level 1.35 Respiratory: Chest Non Tender, Normal Breath Sounds, No Accessory Muscle Use, No Respiratory Distress, Crackles (RLL) Cardiovascular: Regular Rate, Rhythm, No Gallop, No JVD, No Murmur, Normal Peripheral Pulses Capillary Refill: Less Than 3 Seconds Objective Exam Vital Signs Vital Signs Date Time Temp Pulse Resp B/P (MAP) Pulse Ox O2 Delivery O2 Flow Rate FiO2 05/14/21 08:01 37.0 78 18 129/76 (93) 90 Nasal Cannula 3.00 Capillary Refill : General Appearance: No Apparent Distress, WD/WN HEENT: PERRL/EOMI, Pharynx Normal Neck: Normal Inspection, Non Tender, Supple Respiratory: Chest Non Tender, Normal Breath Sounds, No Respiratory Distress, Crackles (RLL) Cardiovascular: Regular Rate, Rhythm, No Gallop, No JVD, No Murmur, Normal Peripheral Pulses Gastrointestinal: Normal Bowel Sounds, No Organomegaly, Non Tender, Soft Rectal: Deferred Extremity: Normal Range of Motion, Non Tender, No Calf Tenderness, Pedal Edema (2+ to mid-thigh) Neurologic/Psychiatric: Alert, Oriented x3, No Motor/Sensory Deficits, Normal 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 Imaging: Reviewed Imaging Films, Reviewed Imaging Report Diagnosis/Problems Diagnosis/Problems (1) Acute respiratory failure with hypoxia Status: Acute Assessment & Plan: 2/2 pneumonia in RLL Improving NC at 3L Continue to wean oxygen as able PT to ambulate patient (2) RLL pneumonia Status: Acute Assessment & Plan: Improving Empiric therapy with Zosyn D#2 Qualifiers: Qualified Codes: J18.9 - Pneumonia, unspecified organism (3) Chest pain Onset Date: ~ 05/13/2021 Status: Acute Assessment & Plan: Cardiology consulted and evaluating Awaiting echo results Potentially musculoskeletal per reproducibility on PE by cardiology Qualifiers: Qualified Codes: R07.82 - Intercostal pain (4) Severe sepsis Status: Acute Assessment & Plan: DC IVF Continue antibiotics for pneumonia (5) Hypokalemia Status: Acute Assessment & Plan: Likely 2/2 diarrhea Replace as needed (6) Hypomagnesemia Status: Acute Assessment & Plan: Likely 2/2 diarrhea Replace as needed (7) HTN (hypertension) Status: Chronic Assessment & Plan: Holding home losartan and HCTZ Continue all other home cardiac medications LADONNA GUY DO 05/15/21 0521: Subjective Subjective/Events-last exam Pt doing about the same Hep locking IV fluid O2 will be weaned Fever of [address] scan showed right lower lobe pneumonia maintained on Zosyn Covid is negative so he was moved out of the room Review of Systems General: Fatigue, Malaise Objective Exam General Appearance: No Apparent Distress, WD/WN, Chronically ill Respiratory: Normal Breath Sounds, Crackles (RLL) Cardiovascular: Regular Rate, Rhythm Neurologic/Psychiatric: Alert, Oriented x3, No Motor/Sensory Deficits, Normal Mood/Affect Assessment/Plan Assessment and Plan Assess & Plan/Chief Complaint (1) Acute respiratory failure with hypoxia Status: Acute Assessment & Plan: 2/2 pneumonia in RLL Improving NC at 3L Continue to wean oxygen as able PT to ambulate patient (2) RLL pneumonia Status: Acute Assessment & Plan: Improving Empiric therapy with Zosyn D#2 Qualifiers: Qualified Codes: J18.9 - Pneumonia, unspecified organism (3) Chest pain Onset Date: ~ 05/13/2021 Status: Acute Assessment & Plan: Cardiology consulted and evaluating Awaiting echo results Potentially musculoskeletal per reproducibility on PE by cardiology Qualifiers: Qualified Codes: R07.82 - Intercostal pain (4) Severe sepsis Status: Acute Assessment & Plan: DC IVF Continue antibiotics for pneumonia (5) Hypokalemia Status: Acute Assessment & Plan: Likely 2/2 diarrhea Replace as needed (6) Hypomagnesemia Status: Acute Assessment & Plan: Likely 2/2 diarrhea Replace as needed (7) HTN (hypertension) Status: Chronic Assessment & Plan: Holding home losartan and HCTZ Continue all other home cardiac medications Supervisory-Addendum Brief Verification & Attestation Participated in pt care: history, MDM, physical Personally performed: exam, history, MDM, supervision of care Care discussed with: Medical Student Procedures: n/a Results interpretation: Verified all documentation Verification and Attestation of Medical Student E/M Service A medical student performed and documented this service in my presence. I reviewed and verified all information documented by the medical student and made modifications to such information, when appropriate. I personally performed the physical exam and medical decision making. Ladonna Guy, May 15, 2021,05:21 ELVIA PALMER May 14, 2021 12:20 LADONNA UGY DO May 15, 2021 05:21
[2021-05-14] MEDS ORDERED: ATOR40TA70 PO (12:42)
[2021-05-14] MEDS ORDERED: NAPH15DR13 OU (12:42)
[2021-05-14] MEDS ORDERED: ACET325T38 PO (12:42)
[2021-05-14] MEDS ORDERED: ASPI-999 PO (12:42)
[2021-05-14] MEDS: ENOXAPARIN 40 MG/0.4 ML (LOVENOX) SYR SC SCH (16:38)
[2021-05-14] MEDS ORDERED: CHLORASEPTIC SPRAY 177 ML LIQUID MC PRN (17:00)
[2021-05-15] MEDS: ACETAMINOPHEN 500 MG TAB (TYLENOL) PO PRN ×2 (00:08→11:15)
[2021-05-15] MEDS: PIPERACILLIN SODIUM/TAZOBACTAM 4.5 GM in NS (IVPB) 100 ML IV SCH ×2 (00:08→06:39)
[2021-05-15 04:38] VITALS: BP 133/65
[2021-05-15] MEDS: IBUPROFEN 600 MG (MOTRIN) TAB PO PRN (04:38)
[2021-05-15 06:26] LABS: EOSINOPHILS # (AUTO) 0.3 10^3/uL (0.0-0.3); EOSINOPHILS % (AUTO) 4 % (0-10); HEMOGLOBIN 10.7 g/dL (13.3-17.7)
[2021-05-15 06:28] LABS: BASOPHILS # (AUTO) 0.1 10^3/uL (0.0-0.1); BASOPHILS % (AUTO) 1 % (0-10); HEMATOCRIT 32 % (40-54); LYMPHOCYTES # (AUTO) 0.8 10^3/uL (1.0-4.0); LYMPHOCYTES % (AUTO) 9 % (12-44); MEAN CORPUSCULAR HEMOGLOBIN 28 pg (25-34); MEAN CORPUSCULAR HGB CONC 33 g/dL (32-36); MEAN CORPUSCULAR VOLUME 85 fL (80-99); MEAN PLATELET VOLUME 11.1 fL (9.0-12.2); MONOCYTES % (AUTO) 12 % (0-12); NEUTROPHILS # (AUTO) 6.5 10^3/uL (1.8-7.8); NEUTROPHILS % (AUTO) 74 % (42-75); PLATELET COUNT 70 10^3/uL (130-400); WHITE BLOOD COUNT 8.7 10^3/uL (4.3-11.0)
[2021-05-15 06:38] LABS: ALBUMIN 2.8 GM/DL (3.2-4.5); POTASSIUM 3.6 MMOL/L (3.6-5.0)
[2021-05-15] MEDS: PANTOPRAZOLE 20 MG TABLET (PROTONIX) PO SCH (06:39)
[2021-05-15 06:40] LABS: CALCIUM 7.9 MG/DL (8.5-10.1)
[2021-05-15 06:41] LABS: TOTAL PROTEIN 5.6 GM/DL (6.4-8.2)
[2021-05-15 06:43] LABS: BILIRUBIN,TOTAL 0.7 MG/DL (0.1-1.0)
[2021-05-15 06:44] LABS: CREATININE SERUM 0.75 MG/DL (0.60-1.30)
[2021-05-15 08:00] VITALS: BP 129/84
[2021-05-15] MEDS: CLOPIDOGREL 75 MG (PLAVIX) TABLET PO SCH (08:58)
[2021-05-15] MEDS: ATENOLOL 25 MG (TENORMIN) TAB PO SCH (08:58)
[2021-05-15] MEDS: ASPIRIN 81 MG CHEW (CHILDREN'S ASA) PO SCH (08:58)
[2021-05-15] MEDS: amLODIPine 10 MG (NORVASC) TAB PO SCH (08:58)
--- NOTE | 2021-05-15 10:00 | Progress Note - Cardiology ---
Cardiology SOAP Progress Note Subjective: Sitting up in chair at the bedside States he feels about the same as yesterday Continues to have "twinges" of chest discomfort No c/o palpitations Reports occ prod cough Objective: I&O/Vital Signs 05/15/21 05/15/21 05/15/21 05/15/21 04:38 04:38 07:00 08:00 Temp 37.4 37.4 Pulse 69 70 Resp 16 B/P (MAP) 133/65 (87) Pulse Ox 94 O2 Delivery Nasal Cannula Nasal Cannula O2 Flow Rate 3.00 3.00 05/15/21 05/15/21 05/15/21 05/15/21 08:00 09:50 12:00 12:09 Temp 36.7 37.6 Pulse 72 119 100 Resp 18 18 B/P (MAP) 129/84 (99) 158/91 (113) Pulse Ox 92 92 O2 Delivery Nasal Cannula Nasal Cannula Nasal Cannula O2 Flow Rate 3.00 3.00 3.00 05/15/21 12:37 Temp 37.6 Pulse 100 Resp 18 B/P (MAP) 158/91 Pulse Ox 92 O2 Delivery Nasal Cannula O2 Flow Rate 3.00 05/15/21 00:00 Intake Total 6550 ml Output Total 1601 ml Balance 4949 ml Constitutional: AAO x 3, well-developed, well-nourished Respiratory: No accessory muscle use, No respiratory distress; chest expansion is symmetric, chest is bilaterally symmetric, other (coarse breath sounds bases bilat) Cardiovascular: regular rate-rhythm; No JVD; S1 and S2 Gastrointestional: No tender; soft, audible bowel sounds Extremities: no lower extremity edema bilateral Neurologic/Psychiatric: grossly intact (moves all extremities) Skin: No rash on exposed areas, No ulcerations on exposed areas Results/Procedures: Labs Laboratory Tests 05/15/21 06:06: White Blood Count 8.7, Red Blood Count 3.77L, Hemoglobin 10.7L, Hematocrit 32L, Mean Corpuscular Volume 85, Mean Corpuscular Hemoglobin 28, Mean Corpuscular Hemoglobin Concent 33, Red Cell Distribution Width 12.8, Platelet Count 70L, Mean Platelet Volume 11.1, Immature Granulocyte % (Auto) 1, Neutrophils (%) (Auto) 74, Lymphocytes (%) (Auto) 9L, Monocytes (%) (Auto) 12, Eosinophils (%) (Auto) 4, Basophils (%) (Auto) 1, Neutrophils # (Auto) 6.5, Lymphocytes # (Auto) 0.8L, Monocytes # (Auto) 1.0, Eosinophils # (Auto) 0.3, Basophils # (Auto) 0.1, Immature Granulocyte # (Auto) 0.1, Neutrophils % (Manual) 71, Lymphocytes % (Manual) 8, Monocytes % (Manual) 12, Eosinophils % (Manual) 8, Basophils % (Manual) 1, Percent Immature Platelet Fraction 5.7, [place] Cells MODERATE, Elliptocytes SLIGHT, Absolute Reticulocyte Count 36, Percent Reticulocyte Count 0.96, Sodium Level 137, Potassium Level 3.6, Chloride Level 106, Carbon Dioxide Level 21, Anion Gap 10, Blood Urea Nitrogen 10, Creatinine 0.75, Estimat Glomerular Filtration Rate 96, BUN/Creatinine Ratio 13, Glucose Level 93, Calcium Level 7.9L, Corrected Calcium 8.9, Total Bilirubin 0.7, Aspartate Amino Transf (AST/SGOT) 42H, Alanine Aminotransferase (ALT/SGPT) 30, Alkaline Phosphatase 145H, Total Protein 5.6L, Albumin 2.8L 05/15/21 06:46: B-Type Natriuretic Peptide 123.6H Microbiology 05/12/21 Urine Culture - Final, Complete NO GROWTH 05/12/21 Blood Culture - Preliminary, Resulted No growth A/P: Assessment: Chest pain of undetermined etiology, probably musculoskeletal (reproducible on physical exam) - no evidence of ACS Pneumonia - management per medical services Multivessel CAD - Card cath on 11/25/19: LMCA ok; RCA dominant with mild diffuse disease; LAD 95% mid, treated with DONTRELL; LCX 99% mid, treated with DONTRELL; OM1 80% prox, treated with DONTRELL - Echo of 11/25/19: Mild conc LVH, LVEF 55-65%, grade 1 diastolic dysfunction, PASP 20 mm Hg to 25 mm Hg - Continue ASA and Plavix Hypertension - controlled Electrolyte abnormalities - likely secondary to vol loss d/t diarrhea and chronic diuretic use - replace H/O tobaccoism - quit smoking greater than 10 yrs ago Plan: Chest pain of undetermined etiology - no evidence of ACS Pneumonia - mangement per medical services Electrolyte abnormalities - resolved Monitor lab and replace electrolytes as indicated MANDA GARCIA May 15, 2021 10:00
[2021-05-15 10:09] LABS: ABSOLUTE RETIC # 36 10e9/uL (24-90); RETICULOCYTE % 0.96 % (0.50-2.40)
[2021-05-15] MEDS ORDERED: AUGMENTIN 875 MG TAB (AMOXICILLIN/CLAVULANATE) PO SCH (10:30)
[2021-05-15] MEDS ORDERED: AMOX1TAB12 PO (10:48)
--- NOTE | 2021-05-15 10:49 | Discharge Summary ---
Discharge Summary Hospital Course Was the Problem List Reviewed?: Yes Problems/Dx: (1) Acute respiratory failure with hypoxia Status: Acute (2) RLL pneumonia Status: Acute Qualifiers: Qualified Codes: J18.9 - Pneumonia, unspecified organism (3) Chest pain Status: Acute Qualifiers: Qualified Codes: R07.82 - Intercostal pain (4) Severe sepsis Status: Resolved (5) Hypokalemia Status: Resolved (6) Hypomagnesemia Status: Resolved (7) HTN (hypertension) Status: Chronic Hospital Course Date of Admission: May 12, 2021 at 15:07 Admission Diagnosis : Family Physician/Provider: Rambo Espinoza DO Date of Discharge: 05/15/21 Discharge Diagnosis: Fever, hypoxia, right lower lobe pneumonia on CT scan, chronic thrombocytopenia per patient Hospital Course: Pt had an uneventful hospital course when he was admitted for fever. CT scan showed right lower lobe pneumonia and procalcitonin was elevated consistent with that. Overall he felt like he was much better. He did have an episode of chest pain, prompting cardiology consultation. Echocardiogram had a normal ejection fraction. PT and OT were consulted. He was feeling well and didn't require oxygen at time of discharge. He was discharged in improved condition on Augmentin. Labs and Pending Lab Test: Laboratory Tests 05/15/21 06:06: White Blood Count 8.7, Red Blood Count 3.77L, Hemoglobin 10.7L, Hematocrit 32L, Mean Corpuscular Volume 85, Mean Corpuscular Hemoglobin 28, Mean Corpuscular Hemoglobin Concent 33, Red Cell Distribution Width 12.8, Platelet Count 70L, Mean Platelet Volume 11.1, Immature Granulocyte % (Auto) 1, Neutrophils (%) (Auto) 74, Lymphocytes (%) (Auto) 9L, Monocytes (%) (Auto) 12, Eosinophils (%) (Auto) 4, Basophils (%) (Auto) 1, Neutrophils # (Auto) 6.5, Lymphocytes # (Auto) 0.8L, Monocytes # (Auto) 1.0, Eosinophils # (Auto) 0.3, Basophils # (Auto) 0.1, Immature Granulocyte # (Auto) 0.1, Neutrophils % (Manual) [Pending], Percent Immature Platelet Fraction 5.7, Absolute Reticulocyte Count 36, Percent Reticulocyte Count 0.96, Sodium Level 137, Potassium Level 3.6, Chloride Level 106, Carbon Dioxide Level 21, Anion Gap 10, Blood Urea Nitrogen 10, Creatinine 0.75, Estimat Glomerular Filtration Rate 96, BUN/Creatinine Ratio 13, Glucose Level 93, Calcium Level 7.9L, Corrected Calcium 8.9, Total Bilirubin 0.7, Aspartate Amino Transf (AST/SGOT) 42H, Alanine Aminotransferase (ALT/SGPT) 30, Alkaline Phosphatase 145H, Total Protein 5.6L, Albumin 2.8L Microbiology 05/12/21 Urine Culture - Final, Complete NO GROWTH 05/12/21 Blood Culture - Preliminary, Resulted No growth Home Meds Active Amox Tr-K Clv 875-125 mg Tab (Amoxicillin/Potassium Clav) 1 Each Tablet 875 Mg PO BID WITH MEALS Reported Eye Allergy Relief Drops (Naphazoline HCl/Pheniramine) 15 Ml Drops 1 Drop OU DAILY PRN Tylenol (Acetaminophen) 325 Mg Tablet 650 Mg PO Q6H PRN Atorvastatin Calcium 40 Mg Tablet 40 Mg PO 2029 Aspirin 81 Mg Tab.chew 81 Mg PO DAILY Plavix (Clopidogrel Bisulfate) 75 Mg Tablet 75 Mg PO 2029 Hydrochlorothiazide 25 Mg Tablet 25 Mg PO DAILY Hydralazine HCl 50 Mg Tablet 50 Mg PO BID Multivitamin 1 Each Tablet 1 Each PO DAILY Benadryl (Diphenhydramine HCl) 25 Mg Capsule 25-50 Mg PO Q6H PRN Losartan Potassium 100 Mg Tablet 100 Mg PO DAILY Omeprazole 20 Mg Capsule.dr 20 Mg PO BID Amlodipine Besylate 10 Mg Tablet 10 Mg PO DAILY Atenolol 25 Mg Tablet 25 Mg PO DAILY Assessment/Pt Instructions PCP in 1 week Discharge Planning: <30 minutes discharge planning Discharge Instructions Discharge Diet: No Restrictions Discharge Physical Examination Vital Signs Vital Signs Date Time Temp Pulse Resp B/P (MAP) Pulse Ox O2 Delivery O2 Flow Rate FiO2 05/15/21 09:50 Nasal Cannula 3.00 05/15/21 08:00 36.7 72 18 129/84 (99) 92 General Appearance: No Apparent Distress, WD/WN, Chronically ill Respiratory: Lungs Clear Cardiovascular: Regular Rate, Rhythm Allergies: Coded Allergies: lisinopril (Verified Allergy, Severe, 05/12/21) FACIAL SWELLING adhesive tape (Verified Allergy, Mild, Rash, 05/12/21) Discharge Summary Date of Admission May 12, 2021 at 15:07 Date of Discharge Discharge Date: May 15, 2021 Admission Diagnosis Severe sepsis due to pneumonia Discharge Diagnosis (1) Acute respiratory failure with hypoxia Status: Acute Assessment & Plan: 2/2 pneumonia in RLL Improving NC at 3L Continue to wean oxygen as able PT to ambulate patient (2) RLL pneumonia Status: Acute Assessment & Plan: Improving Empiric therapy with Zosyn D#2 Qualifiers: Qualified Codes: J18.9 - Pneumonia, unspecified organism (3) Chest pain Onset Date: ~ 05/13/2021 Status: Acute Assessment & Plan: Cardiology consulted and evaluating Awaiting echo results Potentially musculoskeletal per reproducibility on PE by cardiology Qualifiers: Qualified Codes: R07.82 - Intercostal pain (4) Severe sepsis Status: Acute Assessment & Plan: DC IVF Continue antibiotics for pneumonia (5) Hypokalemia Status: Acute Assessment & Plan: Likely 2/2 diarrhea Replace as needed (6) Hypomagnesemia Status: Acute Assessment & Plan: Likely 2/2 diarrhea Replace as needed (7) HTN (hypertension) Status: Chronic Assessment & Plan: Holding home losartan and HCTZ Continue all other home cardiac medications (1) Acute respiratory failure with hypoxia Status: Acute Assessment & Plan: 2/2 pneumonia in RLL Improving NC at 3L Continue to wean oxygen as able PT to ambulate patient (2) RLL pneumonia Status: Acute Assessment & Plan: Improving Empiric therapy with Zosyn D#2 Qualifiers: Qualified Codes: J18.9 - Pneumonia, unspecified organism (3) Chest pain Onset Date: ~ 05/13/2021 Status: Acute Assessment & Plan: Cardiology consulted and evaluating Awaiting echo results Potentially musculoskeletal per reproducibility on PE by cardiology Qualifiers: Qualified Codes: R07.82 - Intercostal pain (4) Severe sepsis Status: Resolved Assessment & Plan: DC IVF Continue antibiotics for pneumonia (5) Hypokalemia Status: Resolved Assessment & Plan: Likely 2/2 diarrhea Replace as needed (6) Hypomagnesemia Status: Resolved Assessment & Plan: Likely 2/2 diarrhea Replace as needed (7) HTN (hypertension) Status: Chronic Assessment & Plan: Holding home losartan and HCTZ Continue all other home cardiac medications VERONICA BASSETT DO May 15, 2021 10:49
[2021-05-15 10:55] LABS: BASOPHILS % (MANUAL) 1 %; BURR CELLS MODERATE; ELLIPT/OVALOCYTES SLIGHT; EOSINOPHILS % (MANUAL) 8 %; LYMPHOCYTES % (MANUAL) 8 %; MONOCYTES % (MANUAL) 12 %; NEUTROPHILS % (MANUAL) 71 %
--- NOTE | 2021-05-15 11:57 | Physical Therapy Progress Note ---
Therapy Progress Note Patient presented sitting up in recliner. Patient was not wearing O2 and reports that he does not wear any at home. Patient O2 saturation was 89% at rest. Patient ambulated for 100' and his O2 saturation was 90%. Patient ambulated back to his room and sat back in his chair and his O2 was 95%. Patient did not report any shortness of breath while ambulating. Patient is independent for all activities at this time and PT is not going to be continued. 1 Visit No charge DEVYN PENA PT May 15, 2021 11:56
[2021-05-15 12:00] VITALS: BP 158/91
--- NOTE | 2021-05-15 12:05 | Occ Therapy Progress Note ---
Therapy Progress Note Pt up ad jessica at OT arrival. RN present and reports that pt just finished a shower, toileting, and dressing tasks independently. Pt denies any self care concerns but does state that he continues to have mild SOB with exertion. OT educates pt on energy conservation strategies. OT not warranted at this time. 1 visit No charge Madhavi Smart OT May 15, 2021 12:05
--- NOTE | 2021-05-15 12:10 | Progress Note - Hospitalist ---
ELVIA PALMER 05/15/21 1210: Subjective HPI/CC On Admission Date Seen by Provider: May 15, 2021 Time Seen by Provider: 09:30 Alo Fischer is a 71 year old male with PMH HTN, CAD, GERD, who presented with fevers. He has also been having body aches. He reports diarrhea. He denies shortness of breath and cough. He denies chest pain. He denies nausea and vomiting. He denies abdominal pain. He denies dysuria. Subjective/Events-last exam Patient is feeling better today. Complaining of subjective fevers overnight but has seen an improvement in diarrhea and body aches. He endorses a productive cough overnight. Review of Systems General: No Chills, No Night Sweats HEENT: No Head Aches, No Visual Changes, No Eye Pain Pulmonary: No Dyspnea; Cough Cardiovascular: No: Chest Pain, Palpitations, Orthopnea Gastrointestinal: No: Nausea, Vomiting, Abdominal Pain, Diarrhea Genitourinary: No Dysuria, No Frequency Musculoskeletal: No: leg pain, foot pain Neurological: No: Weakness, Numbness Focused Exam Sepsis Stage: Severe Sepsis Lactate Level 05/12/21 13:20: Lactic Acid Level 1.35 Time of Focused Exam: 09:30 Respiratory: Chest Non Tender, Lungs Clear, Normal Breath Sounds, No Accessory Muscle Use, No Respiratory Distress Cardiovascular: Regular Rate, Rhythm, No Gallop, No JVD, No Murmur, Normal Peripheral Pulses Capillary Refill: Less Than 3 Seconds Skin: normal color, warm/dry Objective Exam Vital Signs Vital Signs Date Time Temp Pulse Resp B/P (MAP) Pulse Ox O2 Delivery O2 Flow Rate FiO2 05/15/21 12:09 100 05/15/21 12:00 37.6 18 158/91 (113) 92 Nasal Cannula 3.00 Capillary Refill : Less Than 3 Seconds General Appearance: No Apparent Distress, WD/WN HEENT: PERRL/EOMI, Pharynx Normal, Moist Mucous Membranes Neck: Full Range of Motion, Normal Inspection, Non Tender, Supple Respiratory: Chest Non Tender, Lungs Clear, Normal Breath Sounds, No Accessory Muscle Use, No Respiratory Distress Cardiovascular: Regular Rate, Rhythm, No Gallop, No JVD, No Murmur, Normal Peripheral Pulses Gastrointestinal: Normal Bowel Sounds, No Organomegaly, Non Tender, Soft Rectal: Deferred Back: Normal Inspection Extremity: Normal Capillary Refill, Pedal Edema (1+ to bilateral shins) Neurologic/Psychiatric: Alert, Oriented x3, No Motor/Sensory Deficits, Normal 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 Imaging: Reviewed Imaging Films, Reviewed Imaging Report Assessment/Plan Assessment and Plan Assess & Plan/Chief Complaint HOSPITAL COURSE Alo Fischer is a 71yoM that presented on 05/12/21 with fevers, body aches, and diarrhea. He was tested for COVID and found to be negative. CXR and CTA on 05/12/21 were suggestive of right lower lobe pneumonia. He was treated initially with Cefepime but was quickly transitioned to Zosyn and began showing improvement. He will be transitioned to Augmentin 875mg PO BID to complete upon discharge. Cardiology was consulted to evaluate left-sided chest pain which was thought to be musculoskeletal due to reproducibility on physical examination. An echocardiogram was ordered and reviewed by cardiology. BNP was reviewed and found to be elevated on 05/15/21. Patient will be discharged, complete course of antibiotics for RLL PNA, follow-up outpatient with Dr. Espinoza later this week, and follow-up with cardiology outpatient. Patient still requiring minimal (2-3 L) oxygen when ambulating, so DME will be established for home oxygen access. Diagnosis/Problems Diagnosis/Problems (1) Acute respiratory failure with hypoxia Status: Acute Assessment & Plan: 2/2 pneumonia in RLL Improving NC at 3L while ambulating Continue to wean oxygen as able PT/OT Possible DC today - f/u with Dr. Espinoza later this week (2) RLL pneumonia Status: Acute Assessment & Plan: Improving Transition Zosyn IV to PO Augmentin 875mg BID Qualifiers: Qualified Codes: J18.9 - Pneumonia, unspecified organism (3) Chest pain Onset Date: ~ 05/13/2021 Status: Acute Assessment & Plan: Cardiology consulted and evaluating Echo reviewed by cardiology Potentially musculoskeletal per reproducibility on PE by cardiology BNP elevated on 05/15/21 Follow-up with cardiology outpatient Qualifiers: Qualified Codes: R07.82 - Intercostal pain (4) Severe sepsis Status: Resolved Assessment & Plan: Continue antibiotics for pneumonia Resolution Date/Time: 05/15/21 @ 12:16 (5) Hypokalemia Status: Resolved Assessment & Plan: Likely 2/2 diarrhea Continue home potassium medication Resolution Date/Time: 05/15/21 @ 12:10 (6) Hypomagnesemia Status: Resolved Assessment & Plan: Likely 2/2 diarrhea Resolution Date/Time: 05/15/21 @ 12:10 (7) HTN (hypertension) Status: Chronic Assessment & Plan: Holding home losartan and HCTZ Continue all other home cardiac medications (8) Thrombocytopenia Status: Chronic Assessment & Plan: Continue to monitor on outpatient basis LADONNA BASSETT DO 05/16/21 0543: Supervisory-Addendum Brief Verification & Attestation Participated in pt care: history, MDM, physical Personally performed: exam, history, MDM, supervision of care Care discussed with: Medical Student Procedures: n/a Results interpretation: Verified all documentation Verification and Attestation of Medical Student E/M Service A medical student performed and documented this service in my presence. I reviewed and verified all information documented by the medical student and made modifications to such information, when appropriate. I personally performed the physical exam and medical decision making. Ladonna Bassett, May 16, 2021,05:43 ELVIA PALMER May 15, 2021 12:10 LADONNA BASSETT DO May 16, 2021 05:43
[2021-05-15 12:37] VITALS: BP 158/91
--- NOTE | 2021-05-15 14:14 | Progress Note - Cardiology ---
Cardiology SOAP Progress Note Subjective: Feels better today No cp today or palp or syncope or shortness of breath at rest No n/v/d Some gen malaise and weakness Objective: I&O/Vital Signs 05/15/21 05/15/21 05/15/21 05/15/21 04:38 04:38 07:00 08:00 Temp 37.4 37.4 Pulse 69 70 Resp 16 B/P (MAP) 133/65 (87) Pulse Ox 94 O2 Delivery Nasal Cannula Nasal Cannula O2 Flow Rate 3.00 3.00 05/15/21 05/15/21 05/15/21 05/15/21 08:00 09:50 12:00 12:09 Temp 36.7 37.6 Pulse 72 119 100 Resp 18 18 B/P (MAP) 129/84 (99) 158/91 (113) Pulse Ox 92 92 O2 Delivery Nasal Cannula Nasal Cannula Nasal Cannula O2 Flow Rate 3.00 3.00 3.00 05/15/21 12:37 Temp 37.6 Pulse 100 Resp 18 B/P (MAP) 158/91 Pulse Ox 92 O2 Delivery Nasal Cannula O2 Flow Rate 3.00 05/15/21 00:00 Intake Total 6550 ml Output Total 1601 ml Balance 4949 ml Constitutional: AAO x 3, well-developed, well-nourished Respiratory: No accessory muscle use, No respiratory distress; chest expansion is symmetric, chest is bilaterally symmetric, other (coarse breath sounds bases bilat) Cardiovascular: regular rate-rhythm; No JVD; S1 and S2 Gastrointestional: No tender; soft, audible bowel sounds Extremities: no lower extremity edema bilateral Neurologic/Psychiatric: grossly intact (moves all extremities) Skin: normal color, warm/dry Results/Procedures: Labs Laboratory Tests 05/15/21 06:06: White Blood Count 8.7, Red Blood Count 3.77L, Hemoglobin 10.7L, Hematocrit 32L, Mean Corpuscular Volume 85, Mean Corpuscular Hemoglobin 28, Mean Corpuscular Hemoglobin Concent 33, Red Cell Distribution Width 12.8, Platelet Count 70L, Mean Platelet Volume 11.1, Immature Granulocyte % (Auto) 1, Neutrophils (%) (Auto) 74, Lymphocytes (%) (Auto) 9L, Monocytes (%) (Auto) 12, Eosinophils (%) (Auto) 4, Basophils (%) (Auto) 1, Neutrophils # (Auto) 6.5, Lymphocytes # (Auto) 0.8L, Monocytes # (Auto) 1.0, Eosinophils # (Auto) 0.3, Basophils # (Auto) 0.1, Immature Granulocyte # (Auto) 0.1, Neutrophils % (Manual) 71, Lymphocytes % (Manual) 8, Monocytes % (Manual) 12, Eosinophils % (Manual) 8, Basophils % (Manual) 1, Percent Immature Platelet Fraction 5.7, [place] Cells MODERATE, Elliptocytes SLIGHT, Absolute Reticulocyte Count 36, Percent Reticulocyte Count 0.96, Sodium Level 137, Potassium Level 3.6, Chloride Level 106, Carbon Dioxide Level 21, Anion Gap 10, Blood Urea Nitrogen 10, Creatinine 0.75, Estimat Glomerular Filtration Rate 96, BUN/Creatinine Ratio 13, Glucose Level 93, Calcium Level 7.9L, Corrected Calcium 8.9, Total Bilirubin 0.7, Aspartate Amino Transf (AST/SGOT) 42H, Alanine Aminotransferase (ALT/SGPT) 30, Alkaline Phosphatase 145H, Total Protein 5.6L, Albumin 2.8L 05/15/21 06:46: B-Type Natriuretic Peptide 123.6H Microbiology 05/12/21 Urine Culture - Final, Complete NO GROWTH 05/12/21 Blood Culture - Preliminary, Resulted No growth Laboratory Tests 05/14/21 06:46 05/15/21 06:06 A/P: Assessment: Chest pain of undetermined etiology, probably musculoskeletal (reproducible on physical exam) - no evidence of ACS Pneumonia - management per medical services Multivessel CAD - Card cath on 11/25/19: LMCA ok; RCA dominant with mild diffuse disease; LAD 95% mid, treated with DONTRELL; LCX 99% mid, treated with DONTRELL; OM1 80% prox, treated with DONTRELL - Echo of 11/25/19: Mild conc LVH, LVEF 55-65%, grade 1 diastolic dysfunction, PASP 20 mm Hg to 25 mm Hg - Continue ASA and Plavix Hypertension - controlled Electrolyte abnormalities - likely secondary to vol loss d/t diarrhea and chronic diuretic use - replace H/O tobaccoism - quit smoking greater than 10 yrs ago Plan: Chest pain of undetermined etiology - no evidence of ACS Pneumonia - mangement per medical services Electrolyte abnormalities - resolved Monitor lab and replace electrolytes as indicated 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 He understands and states he will comply YULIET ULLOA MD FACP [facility] May 15, 2021 14:14
== END 2021-05-15 13:12 | disposition home or self-care (01) | DRG 871 ==
LOC: EDUNIT# 13:02 → ER 13:08 → 4TH 15:07
PROVIDERS: ADMIT Internal Medicine; ATTEND Internal Medicine
DX: A41.9 Sepsis, unspecified organism (principal); J18.9 Pneumonia, unspecified organism; J96.01 Acute respiratory failure with hypoxia; R65.20 Severe sepsis without septic shock; E87.6 Hypokalemia; E83.42 Hypomagnesemia; D69.6 Thrombocytopenia, unspecified; R07.89 Other chest pain; I10 Essential (primary) hypertension; I25.10 Atherosclerotic heart disease of native coronary artery without angina pectoris; K21.9 Gastro-esophageal reflux disease without esophagitis; E66.9 Obesity, unspecified; I25.2 Old myocardial infarction; Z68.30 Body mass index [BMI] 30.0-30.9, adult; Z87.891 Personal history of nicotine dependence; Z95.5 Presence of coronary angioplasty implant and graft; Z79.82 Long term (current) use of aspirin; Z88.8 Allergy status to other drugs, medicaments and biological substances; Z82.49 Family history of ischemic heart disease and other diseases of the circulatory system
CPT/HCPCS: 36415; 71045; 71275; 80048; 80053; 81000; 82550; 83605; 83735; 83880; 84145; 84443; 84484; 85007; 85025; 85027; 85045; 85055; 85379; 85610; 85652; 85730; 86141; 87040; 87088; 93005; 93306; 94761

== ENCOUNTER → 2022-05-01 | Outpatient (CLI) | payer MEDICARE ==
[~2022-05-01] MED LIST changes: +ACET325T38 PO; +AMOX1TAB12 PO; +ATOR40TA70 PO; +CATHETER FLUSH 10 ML SYR IV PRN; +CLOP-31 PO; +HYDR-3924 PO; +HYDR25TA4 PO; +IOHEXOL 350 MG/ML 100 ML (OMNIPAQUE 350) VIAL IV ONE; +NAPH15DR13 OU; +NS 100 ML (IVPB) BAG IV ONE
--- NOTE | 2022-05-01 14:11 | Diagnostic Imaging Report ---
INDICATION: Left upper quadrant lesion seen on outside chest CT, question mass versus aneurysm. TECHNIQUE: Multiple contiguous axial images were obtained through the abdomen and pelvis after the uneventful bolus administration of intravenous contrast. Sagittal and coronal MIP reconstructions with then performed. All CT scans use one or more of the following dose optimizing techniques: automated exposure control, MA and/or KvP adjustment based on patient size and exam type or iterative reconstruction. Comparison made to outside chest CT of 04/19/2022. Visualized portions of the lung bases demonstrate emphysematous changes and parenchymal scarring in both lung bases, see chest CT dictation. There is no pleural fluid or free intraperitoneal air. The liver shows no focal lesion. Gallbladder appears normal. The spleen appears unremarkable. The pancreas and kidneys are unremarkable except for a small cyst in the right kidney anteriorly and inferiorly, and small nonocclusive stones in the renal calyces on both sides. The right adrenal gland appears normal. Left adrenal gland shows a rounded nodule measuring 2.7 cm. This shows Hounsfield units 31 prior to contrast, 88 postcontrast, and 87 on delayed images. Washout percentages 1.8%. There is no retroperitoneal mass or adenopathy. There is no ascites or abnormal fluid collection. Visualized bowel loops are unremarkable. There is no pelvic mass or free fluid. CTA images demonstrate the abdominal aorta to be patent without stenosis or atherosclerotic plaquing. Celiac trunk and SMA are patent. There is mild plaquing of the renal arteries without significant stenosis. The inferior mesenteric artery is patent. The distal aorta shows mild ectasia, with maximal diameter of 2.4 cm. 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 Internal and external iliac arteries are patent with mild ectasia. Common femoral arteries are patent with some posterior plaquing, femoral bifurcations are patent. IMPRESSION: There is a 2.7 cm left adrenal nodule as described above. Washout characteristics are nonspecific, would recommend further evaluation with followup studies, consider followup in 6 months. There are nonocclusive stones in both kidneys. There is mild plaquing in the abdominal aorta with mild ectasia. There is ectasia of the left common iliac artery measuring 2.2 cm. There is no other significant finding. Dictated by: Dictated on workstation # [id number]
== END ==
LOC: RAD 12:32
PROVIDERS: ATTEND Family Medicine
DX: I77.811 Abdominal aortic ectasia (principal); J44.9 Chronic obstructive pulmonary disease, unspecified; I25.10 Atherosclerotic heart disease of native coronary artery without angina pectoris; N20.0 Calculus of kidney; E27.8 Other specified disorders of adrenal gland; R91.8 Other nonspecific abnormal finding of lung field
CPT/HCPCS: 74174

== ENCOUNTER → 2022-12-06 | Outpatient (CLI) | payer MEDICARE ==
[~2022-12-06] MED LIST changes: -CATHETER FLUSH 10 ML SYR IV PRN; +HOLD METFORMIN - RECEIVED CONTRAST 20 ML VIAL IV SCH; +IOHEXOL 350 MG/ML 150 ML (OMNIPAQUE 350) VIAL IV ONE; -LOSA100T57 PO; +LOSA100T58 PO
[2022-12-06 13:34] LABS: CREATININE SERUM 0.93 MG/DL (0.60-1.30)
--- NOTE | 2022-12-06 16:02 | Diagnostic Imaging Report ---
PROCEDURE: CT Angio Abdomen/Pelvis with. TECHNIQUE: Multiple contiguous axial images were obtained through the abdomen and pelvis after the uneventful bolus administration of intravenous contrast. Sagittal and coronal MIP reconstructions with then performed. All CT scans use one or more of the following dose optimizing techniques: automated exposure control, MA and/or KvP adjustment based on patient size and exam type or iterative reconstruction. INDICATION: Left adrenal mass, followup. Correlation is made with prior CT from 05/01/2022. The abdominal aorta does show calcified plaque but is nonaneurysmal. No dissection is seen. The celiac and SMA as well as [place] are patent. There are 2 renal arteries on the right, single renal artery on the left which appear patent. 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 The common and external iliac arteries are patent. The lung bases are clear of acute infiltrates. No discrete liver mass is identified. Gallbladder is unremarkable. There is no biliary ductal dilatation. Pancreas and spleen are unremarkable. No adrenal mass on the right is identified. The previously noted left adrenal nodule is again noted, this is stable in size approximately 2.6 cm. Nonobstructing calculi in the right kidney are noted. There is no hydronephrosis. Bowel loops are normal caliber. There is no obstruction. There is no ascites. The bladder is unremarkable. Prostate is mildly enlarged. There are fat-containing inguinal hernias bilaterally. IMPRESSION: 1. Overall stable CT angiogram of the abdomen and pelvis with contrast when compared study from 05/01/2022. Left adrenal mass is stable. 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 2. Prostatomegaly. 3. Bilateral fat-containing inguinal hernias. Dictated by: Dictated on workstation # [id number]
== END ==
LOC: RAD 12:52
PROVIDERS: ATTEND Family Medicine
DX: R19.09 Other intra-abdominal and pelvic swelling, mass and lump (principal); N40.0 Benign prostatic hyperplasia without lower urinary tract symptoms; K40.20 Bilateral inguinal hernia, without obstruction or gangrene, not specified as recurrent
CPT/HCPCS: 74174; 82565; 84520